=== PATIENT | female | born 1960 | race Caucasian/White ===

== ENCOUNTER 2025-02-02 13:11 | Outpatient (AMB) | payer MEDICARE, SELFPAY ==
--- NOTE | 2025-02-02 13:15 | MHC.OFFVIS ---
Vital Signs 02/02/25 13:16 Height 5 ft 5 in Weight 213 lb BMI 35.4 BP 127/78 Blood Pressure Location Lt brachial Position Sitting Respiration 20 Pulse 77 Pulse Source Pulse Oximeter Pulse Oximetry (%) 97 Oxygen Delivery Method Room Air Intake Visit Reasons: Hand pain Clinical Nurse Specialist Required: No Allergies No Known Allergies Allergy (Verified 01/27/25 11:12) HPI Comments Details: Norma is very pleasant 65 years old female who presents in my office with complains on multiple pain generators. She reports that her pain started in her 30s in her right shoulder. She still complains on pain in the right shoulder. She had multiple hand surgeries and she complains on pain in bilateral hands. She also complains on weakness of the left hand and forearm. She reports that she is not able to function properly with the left hand. She never had an MRI of the cervical spine. She had multiple procedures of the lower back pain the last place where she had the [facility]. Recently she developed left foot arch collapse and she is offered surgery for this condition as well. She experiences severe pain in the bottom of her left sole. Because of her pain she can not sleep normally can not do activities of daily living can not take care of herself and can not function normally. She is retired and on permanent disability. Cold and weather changes aggravate her pain as well as movements. Heat applications topical medications and oral medications make her pain better. In terms of tissue damage he describes her pain as pulsing, throbbing, pounding, tugging, pulling, wrenching, tingling, stinging, dull, hurting, heavy, tiring, exhausting, tight, squeezing, tearing sensation. She had multiple images of multiple areas of the body but [facility] MRI of the cervical spine. She had physical therapy for bilateral hands. She sometime ago had physical therapy for the lumbar spine. She denies any help from physical therapy. She had acupuncture of bilateral hands pain and pain in the lower back and the acupuncture helped her pain for very short period of time. She also tried some herbal medications from . In [place] she does not remember the name of the doctor on nature of the medications. None of this helps her pain for a long period of time. Her past medical history significant for anemia fatigue digestive problems and arthritis. Total she has 17 surgeries including bilateral hip replacement bilateral knee replacements multiple surgeries on the hands multiple surgeries on the knees as well as lap band surgery removal and insertion. She denies smoking cigarettes denies drinking alcohol on regular basis she drinks it occasionally, she admits THC wipe as a recreational drug. Review of Systems Const All systems reviewed & are unremarkable except as noted in HPI and below ENT Reports Normal hearing present Neuro Reports Normal hearing present, Denies Abnormal speech present, Denies confusion and Denies Sensory deficit (Neuro) Psych Denies confusion Physical Exam Vital Signs: Last Vital Signs Pulse 77 02/02/25 13:16 Resp 20 02/02/25 13:16 BP 127/78 02/02/25 13:16 Pulse Ox 97 02/02/25 13:16 Oxygen Delivery Method Room Air 02/02/25 13:16 BMI result Body Mass Index 35.4 Const General: no acute distress; No confusion Nutritional Appearance: obese morbidly obese Orientation/consciousness: patient oriented x3 and No confusion Eyes General: appearance normal, both eyes and all related structures Pupils: Equal, round and reactive pupils present EOM: EOMs intact bilaterally Neck Neck: Yes full ROM Chest Chest palpation & inspection: normal inspection of the chest Resp Effort & Inspection: normal respiratory effort, able to speak in complete sentences, normal respiratory pattern, no audible wheezes and no cough Cardio Jugular venous distension: no JVD GI Inspection: Yes normal to inspection Neuro General: patient oriented x3, gait normal and No confusion Cranial nerves: Yes CN's II-XII intact bilaterally, Yes Equal, round and reactive pupils present, Yes Normal hearing present and Yes Ability to bilaterally elevate shoulders present Speech: No Abnormal speech present Gait exam (Neuro): Normal gait present Motor exam (neuro): 5/5 motor strength present throughout Sensory Exam: No Sensory deficit (Neuro) Extrem Other: Objective weakness of the left hand. She is currently wearing a cast on the right hand after the recent surgery. Wears special shoes with insoles to help the left arch collapsed food. General: No pedal edema Psych Speech and movement: Normal speech and movement present Affect: normal affect Attitude: cooperative Thought process: Normal thought process present Thought content: Normal thought content present Insight: Good insight present (Psych) Judgement: Good judgement present (Psych) Assessment & Plan Assessment & Plan (1) Radiculopathy, cervical: Code(s): M54.12 - Radiculopathy, cervical region Category: Medical (2) Foot arch pain: Code(s): M79.673 - Pain in unspecified foot Category: Medical (3) Arch pain of left foot: Code(s): M79.672 - Pain in left foot Category: Medical (4) 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 Maybe this medication will help her to sleep better and provide some pain relief. I also will send her for the MRI of the cervical spine. The objective weakness of the left upper extremity is troublesome. I will schedule her for left popliteal fossa sciatic nerve block in an attempt to alleviate her pain from the left collapsed foot arch. I will have her to sign medical information release note and I will obtain all the injections she received at [facility] as well as MRI of the lumbar spine. 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
[2025-02-02 13:16] VITALS: BP 127/78; PULSE 77; RESP 20; O2SAT 97; BMI 35.4
--- OUTSIDE RECORDS SUMMARY | 2025-02-02 14:26 | XMS_ITS | Encounter Summary ---
Author Organization [facility] Address [address] [place] [address] Care Team Providers Care Cinder Pit Crane Operator Name Role Phone Christopher Willis MD Primary Care Provider [phone] Reason for Visit * Reason Onset Date Comments Referral 10/06/2024 Encounter Details Date Type Department Care Team ([facility] Contact Info) Description 10/06/2024 Telephone Adult Medicine [facility] [address] [place] [phone] Christopher Willis MD [address] [place] [address] Social History Tobacco Use Types Packs/Day Years Used Date Smoking Tobacco: Former Cigarettes Q uit: 06/01/2002 Smokeless Tobacco: Never Alcohol Use Standard Drinks/Week Comments Yes 0 (1 standard drink = 0.6 oz pur e alcohol) rare Housing Instability Answer Date Recorde d Are you worried that in the next 2 months you may not have stable housing? No 07/01/2024 Food Access & Nutrition Answer Date Rec orded Do you have access to a vari ety of food including fruits and vegetables? Yes 07/01/2024 Access to Healthcare Answer Date Record ed Within the last 3 months, ho donato many times did you visit the emergency department for your medical care? 0 07/01/2024 Health Literacy Answer Date Recorded How often do you need to hav e someone help you when you read instructions, pamphlets, or other written material from your doctor or pharmacy? Never 07/01/2024 Caregiver: How often do you need to have someone help you when you read instructions, pamphlets, or other written material from your doctor or pharmacy? Not on file 07/01/2024 Financial Risk Answer Date Recorded How hard is it for you to pa y for the very basics like food, housing, medical care, and air conditioning / heating? Hard 07/01/2024 Transportation Answer Date Recorded Has the lack of transportati on kept you from meetings, work, or from getting things needed for daily living? No Has the lack of transportati on kept you from medical appointments or from getting medications? No 07/01/2024 Social Isolation Answer Date Recorded How often do you feel lonely or isolated from those around you? Sometimes 07/01/2024 Food Risk Answer Date Recorded Within the past 12 months we worried whether our food would run out before we got money to buy more. Never true 07/01/2024 Within the past 12 months th e food we bought just didn't last and we didn't have money to get more. Never true 07/01/2024 Dependent Care Answer Date Recorded Do you need help finding or paying for care for your loved ones. For example, children's literature professor or elderly care for an older adult? No 07/01/2024 Education Answer Date Recorded Do you think completing more education or training, like finishing a GED, going to college, or learning a trade, would be helpful for you? No 07/01/2024 Employment and Income Answer Date Recor ded During the last four weeks, have you been actively looking for work? No 07/01/2024 Living Situation Answer Date Recorded What is your living situation? 0 07/01/2024 Comments No Sex and Gender Information Value Date Recorded Sex Assigned at Female 06/30/2024 6:30 AM EST Legal Sex Female 4:53 PM EST Gender Identity Female 06/30/2024 6:30 AM EST Sexual Orientation Straight 12/27/2024 3: 33 PM EDT documented as of this encounter Progress Notes * Stefani Samuel MA - 10/11/2024 2:13 PM EDT Pt called and advised to make appt to discuss the referral * Christopher Willis MD - 10/10/2024 5:57 PM EDT Not usually a referral for her type of arthritis. It would be best if she were seen first to discuss role for rheumatology * Henrietta Domínguez - 10/06/2024 9:51 AM EDT Referral Request: What insurance does the patient have today? [employer] Referrals cannot be processed if the insurance is not accurate. If the insurance listed above in red is NO BILLING INFORMATION FOUND FOR THIS ENCOUTNER The patients correct insurance must be obtained and registered in [place] or their referral can not be processed. Who is calling to request this referral? Norma If the caller is not the patient, what is their name? not applicable Ask the patient WHO referred them to this specialty: Patient self referred FIRST and LAST NAME of SPECIALIST PATIENT is seeing: Dr Hilda Disla What specialty is this? Rheumatology DIAGNOSIS Patient is being seen for (Not a body part or a procedure): Osteoarthritis Have you seen this SPECIALIST for this PROBLEM/DX before? If YES, when? No Have you checked REVIEW or the APPT DESK to see if this referral has already been done or has visits left? yes Is this visit: Initial Visit Address of Specialist: [facility] [address] Phone # of Specialist: [phone] Fax #: (if applicable): NA Does patient have an appointment scheduled?: no Date of appointment- (including a retro-request): NA Is this appointment related to: Not MVA, worker compensation, or surgery related documented in this encounter Plan of Treatment Upcoming Encounters Date Type Department Care Team (Late st Contact Info) Description 02/13/2025 9:45 AM EDT Office Visit Orthopedic Surgery - [place] [address] [phone] Shorty Umanzor MD [address] [place] [address] 03/22/2025 11:00 AM EDT Office Visit Adult Medicine - [place] [address] [place] [address] Chepe Byrd PA [address] [place] [address] documented as of this encounter Visit Diagnoses Not on filedocumented in this encounter Additional Health Concerns Assessment Noted Time PHQ-9 Depression Total Score: 11 025 6:58 AM EST documented as of this encounter Care Teams Cinder Pit Crane Operator Relationship Specialty Start Date End Date Christopher Willis MD [address] [place] [id number] PCP - General Internal Medicine 04/17/20 documented as of this encounter
--- OUTSIDE RECORDS SUMMARY | 2025-02-02 14:26 | XMS_ITS | Clinical Summary ---
Author Organization [facility] Address [address] [place] [phone] Phone Care Team Providers Care Health Plan Specialist Name Role Phone Kurt Willis MD Primary Care Provider + Encounters Date Type Department Care Team Description 01/06/2025 Telephone [facility] Rheumatology [address] [place] [address] Unknown, Unknown, Referral from Last 3 Months Social History Tobacco Use Types Packs/Day Years Used Date Smoking Tobacco: Never Assessed Comments Unknown Sex and Gender Information Value Date Recorded Sex Assigned at Not on file Legal Sex Female 9:43 AM EDT Gender Identity Not on file Sexual Orientation Not on file Plan of Treatment Not on file Medical Devices Not on file Insurance [facility] MEDICARE REPLACEMENT [place] [id number] [facility] MEDICARE REPLACEMENT Care Teams Health Plan Specialist Relationship Specialty Start Date End Date Kurt Willis MD [address] [place] [phone] PCP - General Internal Medicine 10/06/24 Additional Source Comments The information contained in this document represents components of the legal health record. It is not the complete legal health record.[facility]
--- OUTSIDE RECORDS SUMMARY | 2025-02-02 14:26 | XMS_ITS ---
Author Name [facility] Organization Unknown Encounters Encounter Type Encounter Reason Primary Diagnosis Location Date Ambulatory [facility] 03/11/2024 Care Team Organization Name Specialty Phone Email Start Date End Da [facility] 2024
--- OUTSIDE RECORDS SUMMARY | 2025-02-02 14:26 | XMS_ITS | Clinical Summary ---
Author Organization [facility] Address [address] [place] [address] Care Team Providers Care Dispatcher Tow Truck Name Role Phone Kurt Willis MD Primary Care Provider Unava ilable Social History Tobacco Use Types Packs/Day Years Used Date Smoking Tobacco: Never Assessed Comments Unknown Sex and Gender Information Value Date Recorded Sex Assigned at Not on file Legal Sex Female 10:34 AM EDT Gender Identity Not on file Sexual Orientation Not on file Plan of Treatment Health Maintenance Due Date Last Done Comments Advance Care Planning 1960 Hepatitis C Virus Screening 1960 DTaP/Tdap/Td Vaccines (1 - Tdap) 1977 Pneumococcal Vaccines 50+ (1 of 1 - PCV) 01/22/2008 Zoster (Shingles) Vaccine (1 of 2) 01/22/2008 COVID-19 Vaccine ( - 2023-2 5 season) 2024 RSV Vaccine 60 years and old er and Patients (1 - 1-dose 75+ series) 2033 Hepatitis B Vaccines Aged Out No long er eligible based on patient's age to complete this topic Care Teams Dispatcher Tow Truck Relationship Specialty Start Date End Date Kurt Willis MD PCP - General
--- OUTSIDE RECORDS SUMMARY | 2025-02-02 14:26 | XMS_ITS | Encounter Summary ---
Author Organization [facility] Address [address] [place] [address] Care Team Providers Care Solutions Development Analyst Name Role Phone Christopher Willis MD Primary Care Provider [phone] Encounter Details Date Type Department Care Team (Late Contact Info) Description 04/08/2024 Nurse Triage Adult Medicine [facility] [address] [place] [phone] Thania Ely PA [address] [place] [address] Social History Tobacco Use Types Packs/Day Years Used Date Smoking Tobacco: Former Cigarettes Q uit: 06/01/2002 Smokeless Tobacco: Never Alcohol Use Standard Drinks/Week Comments Yes 0 (1 standard drink = 0.6 oz pur e alcohol) social Comments No Sex and Gender Information Value Date Recorded Sex Assigned at Female 06/30/2024 6:30 AM EST Legal Sex Female 4:53 PM EST Gender Identity Female 06/30/2024 6:30 AM EST Sexual Orientation Straight 12/27/2024 3: 33 PM EDT documented as of this encounter Plan of Treatment Upcoming Encounters Date Type Department Care Team (Late Contact Info) Description 02/13/2025 9:45 AM EDT Office Visit Orthopedic Surgery [facility] [address] [facility] [address] [place] [phone] Shorty Umanzor MD [address] [place] [address] 03/22/2025 11:00 AM EDT Office Visit Adult Medicine - [place] [address] [place] [address] Chepe Byrd PA [address] [place] [address] documented as of this encounter Visit Diagnoses Not on filedocumented in this encounter Care Teams Solutions Development Analyst Relationship Specialty Start Date End Date Christopher Willis MD [address] [place] [phone] PCP - General Internal Medicine 04/17/20 documented as of this encounter
--- OUTSIDE RECORDS SUMMARY | 2025-02-02 14:26 | XMS_ITS | Clinical Summary ---
Author Organization [facility] Address [address] [place] [address] Care Team Providers Care Horser Up Name Role Phone Unavailable Primary Care Provider Unavailabl e Allergies No known active allergies Medications Medication Sig Dispensed Refills Start Date End Date Status DULoxetine (CYMBALTA) DR capsule 60 mg Take 1 capsule (60 mg total) by mouth daily. 0 Active Multiple Vitamin (MULTIVITAMIN ADULT PO) Take 1 tablet by mouth daily. 0 Active Cholecalciferol (VITAMIN D-3 PO) Take 25 mcg by mouth 2 (two) times a day after meals. 0 Active Turmeric (QC TUMERIC COMPLEX PO) Take 2,400 mg by mouth 2 (two) times a day. 0 Active dicyclomine (BENTYL) 20 MG tablet Take 1 tablet (20 mg total) by mouth 2 (two) times a day. 0 Active pantoprazole (PROTONIX) 40 MG tablet Take 1 tablet (40 mg total) by mouth every morning on an empty stomach. 0 Active tolterodine (DETROL LA) 4 MG 24 hr capsule Take 1 capsule (4 mg total) by mouth daily. 0 Active aspirin EC 81 MG tablet Take 1 tablet (81 mg total) by mouth daily. 0 Active atorvastatin (LIPITOR) tablet 80 mg Take 1 tablet (80 mg total) by mouth daily. 0 Active metoprolol succinate (TOPROL-XL) 24 hr tablet 25 mg Take 0.5 tablets (12.5 mg total) by mouth daily. 0 Active Social History Tobacco Use Types Packs/Day Years Used Date Smoking Tobacco: Former Cigarettes Q uit: 2002 Smokeless Tobacco: Never Alcohol Use Standard Drinks/Week Comments Not Currently 0 (1 standard drink = 0.6 oz pur e alcohol) Sex and Gender Information Value Date Recorded Sex Assigned at Not on file Gender Identity Not on file Sexual Orientation Not on file Job Start Date Occupation Industry Not on file Not on file Not on file Last Filed Vital Signs Vital Sign Reading Time Taken Comments Blood Pressure 150/93 11/10/2022 12:57 PM EDT Pulse 70 11/10/2022 12:57 PM EDT Temperature 36.7 C (98.1 F) 11/10/2022 12:57 PM EDT Respiratory Rate - - Oxygen Saturation 98% 11/10/2022 12:57 PM EDT Inhaled Oxygen Concentration - - Weight 95.3 kg (210 lb) 11/10/2022 12:57 PM EDT Height 162.6 cm (5' 4 ) 11/10/2022 12:57 PM EDT Body Mass Index 36.05 11/10/2022 12:57 PM EDT Plan of Treatment Health Maintenance Due Date Last Done Comments Hepatitis C Screening 1960 COVID-19 Vaccine (#1) 1958 Depression Screening 1970 Preventative Health Evaluation 01/22/1976 Colon Cancer Screening (Colonoscopy) 2003 Breast Cancer Screening (Mammogram) 01/22/2008 Fall Risk Assessment 2023 Osteoporosis Screening (DEXA Scan) 2023 Pneumococcal Vaccine (1 of 1 - PCV) 2023 Influenza Vaccine (#1) 2025 , 02/20/2020, 05/06/2019, Additional history exists DTap / Tdap / Td (3 - Td or Tdap) 09/19/2027 09/18/2017, 11/08/2007 RSV Adult > 60+ Yrs or (1 - 1-dose 75+ series) 2033 Shingrix-Zoster Vaccine Completed 12/31/2017, 09/18 Hepatitis B Vaccines Aged Out No long er eligible based on patient's age to complete this topic RSV Ped < 20 months Aged Out No longe r eligible based on patient's age to complete this topic
--- OUTSIDE RECORDS SUMMARY | 2025-02-02 14:26 | XMS_ITS | Encounter Summary ---
Author Organization [facility] Address [address] [place] [address] Care Team Providers Care Preschool Paraprofessional Name Role Phone Christopher Willis MD Primary Care Provider [phone] Encounter Details Date Type Department Care Team (Late Contact Info) Description 05/18/2024 Lab Requisition [facility] - Main Lab [address] [facility] [place] [address] Jose Vila PA [address] [place] [address] [place] [phone] Gross hematuria Social History Tobacco Use Types Packs/Day Years [...] AM EDT Office Visit Orthopedic Surgery - [place] 250 [address] [facility] [address] [place] [address] Shorty Umanzor MD [address] [place] [address] 03/22/2025 11:00 AM EDT Office Visit Adult Medicine - [place] [address] [place] [phone] Chepe Byrd PA [address] [place] [address] documented as of this encounter Procedures Procedure Name Priority Date/Time Associated Diagnosis Comments AP OUTSIDE CONSULT Routine 05/11/2024 12 :00 AM EST Gross hematuria documented in this encounter Results * Anatomic pathology outside consult (05/11/2024 12:00 AM EST) Addendum Results of UroVysion fluorescence in situ hybridization (FISH) testing: CEP3: Normal CEP7: Normal CEP17: Normal LSI 9p21: Normal Interpretation: Normal profile Controls stained appropriately. Note: The results are intended as a screening device and should be interpreted in association with other clinical and pathological findings. 05/31/2024 1:48 PM [facility] Addendum electronically signed by Allison Menchaca MD on 05/31/2024 at 1:48 PM Final Diagnosis Urine, Voided ([id number]): Negative for high grade urothelial carcinoma. Note: UroVysion testing to follow. 05/31/2024 1:48 PM [facility] Gross Description A. Urine, Voided, : [id number] Received 1 TP (CYTO) 1 TP (FISH) 05/31/2024 1:48 PM [facility] Disclaimer Unless otherwise specified, all tissue is 10% NB formalin fixed and paraffin embedded. Technical pathology services provided by [facility] at [address], [place] [address] (CLIA #[id number]/Susannah Rodriguez MD, Nurse Intern) 05/31/2024 1:48 PM EST [facility] Tissue Urine specimen from urethra / Unknown 05/11/2024 05/18/2024 2:34 PM EST us [facility] PATHOLOGY ORDERAB LES Edited Result - Final [facility] [address] [place] [address], documented in this encounter Visit Diagnoses Diagnosis Gross hematuria documented in this encounter Care Teams Preschool Paraprofessional Relationship Specialty Start Date End Date Christopher Willis MD [address] [place] [phone] PCP - General Internal Medicine 04/17/20 documented as of this encounter
--- OUTSIDE RECORDS SUMMARY | 2025-02-02 14:26 | XMS_ITS | Clinical Summary ---
Author Organization [facility] [address] [facility] [address] Address [address] [place] [address] Phone Care Team Providers Care Hand Edge Bander Name Role Phone Christopher Willis MD Primary Care Provider [phone] Allergies No known active allergies Medications linaCLOtide (Linzess) 72 mcg capsule Take 1 capsule (72 mcg total) by mouth 1 (one) time each day if needed. 024 Active ondansetron ODT (ZOFRAN-ODT) 4 mg disintegrating tablet Dissolve 1 tablet (4 mg total) on top of the tongue every 8 (eight) hours if needed. 024 Active pantoprazole (PROTONIX) 40 mg EC tablet 1 tablet (40 mg total) at bedtime. 024 Active vibegron (Gemtesa) 75 mg tablet tablet 1 tablet (75 mg total) at bedtime. Active ammonium lactate (AMLACTIN) 12 % cream Apply 12 Applications topically if needed for dry skin. 024 Active metoprolol tartrate (LOPRESSOR) 25 mg tablet TAKE 1/2 TABLET BY MOUTH TWICE DAILY 90 tablet 1 Active DULoxetine (CYMBALTA) [address] capsule TAKE 1 CAPSULE BY MOUTH DAILY 90 capsule 1 025 Active Additional Information Patient taking differently: 60 mg Nightly, Reported on 01/13/2025 aspirin 81 mg capsule Take 81 mg by mouth 1 (one) time each day. Pt calling dr office to find out when to stop asa 81 Active multivit with minerals/lutein (MULTIVITAMIN 50 PLUS ORAL) Active nystatin (MYCOSTATIN) cream if needed. Active diclofenac (Voltaren Arthritis Pain) 1 % topical gel Active albuterol HFA (PROAIR HFA ; PROVENTIL HFA ; VENTOLIN HFA) 90 mcg/actuation inhalerIndication s:Wheezing Inhale 2 Puffs into the lungs every 4 hours as needed for Cough, Wheezing or Shortness of Breath. 6.7 g Active montelukast (SINGULAIR) 10 mg tabletIndications :Nasal polyp,Allergic conjunctivitis of both eyes and rhinitis Take 1 tablet (10 mg total) by mouth at bedtime. 90 each Active gabapentin (NEURONTIN) 300 mg capsule TAKE 1 CAPSULE BY MOUTH DAILY 90 capsule Active Additional Information Patient taking differently: 300 mg oral Nightly, Reported on 01/13/2025 atorvastatin (LIPITOR) 80 mg tablet TAKE 1 TABLET BY MOUTH DAILY 90 tablet 1 Active Additional Information Patient taking differently: 80 mg oral Nightly, Reported on 01/13/2025 ipratropium (ATROVENT) 42 mcg (0.06 %) nasal spray Active oxyCODONE (OXY-IR) 5 mg immediate release capsule Take 1 capsule (5 mg total) by mouth every 6 (six) hours if needed for severe pain. Max Daily Amount: 20 mg 24 capsule Active celecoxib (CeleBREX) 100 mg capsule TAKE 1 CAPSULE BY MOUTH DAILY 90 capsule Active tirzepatide, weight loss, (Zepbound) 7.5 mg/0.5 mL injectionIndicati ons:Class 2 obesity,BINTA (obstructive sleep apnea) Inject 0.5 mL (7.5 mg total) under the skin every 7 (seven) days. 2 mL Active celecoxib (CeleBREX) 100 mg capsule TAKE 1 CAPSULE BY MOUTH DAILY 90 capsule 025 2024 Discontinued Zepbound 5 mg/0.5 mL injectionIndicati ons:Class 2 obesity,BINTA (obstructive sleep apnea) INJECT 5MG UNDER THE SKIN EVERY 7 DAYS. 2 mL 025 2024 Discontinued diphenhydrAMINE 12.5 mg/5 mL elixir 50 mg, aluminum-magnesiu m hydroxide-simethi cone 400-400-40 mg/5 mL suspension 20 mL, lidocaine 2 % solution 20 mLIndications:Pha ryngitis, unspecified etiology Swish and spit 10 mL every 6 (six) hours if needed (pain) for up to 5 days. 1 each 025 2024 Additional Information Patient not taking.Reported on 01/06/2025 Zepbound 5 mg/0.5 mL injectionIndicati ons:Class 2 obesity,BINTA (obstructive sleep apnea) ADMINISTER 5 MG UNDER THE SKIN EVERY 7 DAYS 2 mL 025 2024 Discontinued(D ose adjustment) acetaminophen (TYLENOL) 500 mg tablet Take 2 tablets (1,000 mg total) by mouth every 6 (six) hours if needed for mild pain for up to 10 days. 30 tablet 025 2024 ibuprofen (ADVIL,MOTRIN) 600 mg tablet Take 1 tablet (600 mg total) by mouth every 6 (six) hours if needed for mild pain for up to 10 days. 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 [place] to be related to meds Fluoxetine, nortriptyline, tizanidine. 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 Abnormal stress echo. Cath with no significant obst disease. Medical management. Abnormal stress echo 09/27/2019 Overview (04/06/2024): 09/18 Suggestive of multiple vessel disease Referred to cardiology. Cath. No significant disease. Medical management Abnormal EKG 05/06/2019 Overview (04/06/2024): 05/19 - nortriptyline increased, also on prozac. EKG showed borderline QT interval, recommend repeat in 3 months Irritable bowel syndrome wit h both constipation and diarrhea 05/06/2019 Trochanteric bursitis, right hip 02/01/2019 Nonulcer dyspepsia 01/19/2019 Synovial cyst of popliteal space 12/13/2018 Adrenal cyst (CMS/HCC V24) 07/30/2018 Overview (04/06/2024): 1cm, incidental CT abdomen and pelvis in ER 07/27/18, recommend one-year follow- up Anxiety 01/05/2017 Anemia 03/04/2011 Overview (04/06/2024): Mild 02/09--iron , b12 normal Vitamin D deficiency 01/04/2010 Obesity (BMI 30-39.9) 11/06/2007 Lumbago 07/30/2004 Overview (04/06/2024): Disc--PT, injection, no surgery Encounters Date Type Department Care Team Description 01/25/2025 10:00 AM EDT Office Visit Orthopedic Surgery [facility] [address] [place] [phone] Shorty Umanzor MD Arthritis of carpometacarpal (CMC) joint of right thumb (Primary Dx); Degenerative arthritis of metacarpophalangeal joint of right thumb; Postoperative state 01/13/2025 7:32 AM EDT Anesthesia Event [facility] [place] [address] [place] [phone] Ovidio Carmen MD 01/13/2025 7:30 AM EDT - 01/13/2025 9:45 AM EDT Surgery [facility] OR [address] [place] [phone] Shorty Umanzor MD Right thumb CMC arthroplasty, right thumb MP fusion [[id number] (CPT ) +1 more] 01/13/2025 5:34 AM EDT - 01/13/2025 11:33 AM EDT Hospital Encounter [facility] OR [address] [place] [phone] Shorty Umanzor MD Arthritis of carpometacarpal (CMC) joint of right thumb; Degenerative arthritis of metacarpophalangeal joint of right thumb Discharge Disposition: Home or Self Care 01/09/2025 Telephone Orthopedic Surgery [facility] [address] [phone] Kate Mae [place] 01/02/2025 Telephone Adult [address] [phone] Christopher Willis MD 12/28/2024 9:30 AM EDT Office Visit Adult [address] [phone] Chepe Byrd PA Class 2 obesity (Primary Dx); Obstructive sleep apnea; Coronary artery disease involving anvik heart without angina pectoris, unspecified vessel or lesion type; Pharyngitis, unspecified etiology; Former smoker; Wheezing 12/12/2024 10:45 AM EDT Office Visit Adult [address] [phone] Grecia Kaufman PA Medicare annual wellness visit, initial (Primary Dx); Depression, unspecified depression type; Other chronic pain; Pain in both hands; Chronic midline low back pain without sciatica 11/15/2024 10:18 AM EDT - 11/15/2024 11:59 PM EDT Hospital Encounter Radiology Department - [address] [phone] Encounter for screening mammogram for breast cancer Discharge Disposition: Home or Self Care 11/14/2024 10:00 AM EDT Office Visit Orthopedic Surgery [facility] [address] [phone] Shorty Umanzor MD Arthritis of carpometacarpal (CMC) joint of right thumb (Primary Dx); Degenerative arthritis of metacarpophalangeal joint of right thumb 11/09/2024 9:45 AM EDT Office Visit Adult Medicine [address] [phone] Chepe Byrd PA Class 2 obesity (Primary Dx); BINTA (obstructive sleep apnea); Nasal polyp; Allergic conjunctivitis of both eyes and rhinitis; Fibromyalgia; Other chronic pain; Wheezing; Former smoker from Last 3 Months Immunizations Name Administration Dates Next Due H1N1 Inj Preservative Free 05/16/2009 Influenza Quadravalent, 0.5m l (Fluzone High-dose) 65yo and older 03/04/2023 Influenza Quadravalent, MDCK , 0.5ml, preservative free (Flucelvax) 6mo and older 02/20/2020,05/06/2019,02/02/2018 Influenza Quadrivalent, 0.5m l, preservative free (Fluarix; FluLaval; Fluzone) ages 6mo and older (Afluria) 3yo and older 03/28/2022,05/16/2021,03/14/2017,2012 Influenza Quadrivalent, with preservative (Fluzone; Afluria) 6mo and older 03/01/2020,04/13/2019,03/02/2018 Influenza trivalent, 0.5mL ( Fluad) 65yo and older 02/08/2024 Influenza trivalent, 0.5mL ( Fluzone High-dose) 65yo and older 02/08/2024 Influenza trivalent, 0.5mL, preservative free (Fluarix; FluLaval; Fluzone) ages 6mo and older (Afluria) 3 years and older 03/14/2017,05/21/2016,02/15/2015,2013,04/05/2013,03/23/2012,02/25/2011,1 07/04/2009,05/16/2009,05/18/2008, 007,03/19/2006,04/07/2005 Influenza trivalent, with preservative (Fluzone; Afluria) 6mo and older 05/21/2016,03/15/2015,02/15/2015,2012,03/23/2012,02/25/2011,05/03/2010,1 07/17/2008,05/18/2008,05/04/2007, 006,04/07/2005 Influenza, Unspecified 05/01/2012 Moderna SARS-CoV-2 COVID-19, mRNA, LNP-S, preservative free 04/01/2021 PPD Test 04/07/2005,02/27/2003 Pneumococcal conjugate 20 va lent (Prevnar 20, PCV 20) 2mo and older 03/14/2023 RSV, bivalent, protein subun it RSVpreF, 0.5mL, Preservative Free (Arexvy) 60yo and older 06/08/2024 Tdap Tetanus diptheria acell ular pertussis (Boostrix; Adacel) 7yo and older 09/18/2017,11/08/2007 Varicella live (Varivax) 12m o and older 03/02/2018 Zoster recombinant (Shingrix ) 19yo and older 01/18/2018,12/31/2017,09/18/2017 Surgical History Surgery Date Site/Laterality Comments VAGINAL DELIVERY PROCEDURE: HISTORICAL VAGINAL DELIVERY; COMMENT: 3 COLONOSCOPY 03/02/08 PROCEDURE: VT COLONOSCOPY STOMA DX INCLUDING COLLJ SPEC SPX; COMMENT: Up to cecum, good preparation, normal colon exam OTHER SURGICAL HISTORY PROCEDURE: VT LIG/TRNSXJ FLP TUBE ABDL/VAG APPR UNI/BI TUBAL LIGATION PROCEDURE: HISTORICAL TUBAL LIGATION HIP ARTHROPLASTY Bilateral PROCEDURE: HISTORICAL HIP REPLACEMENT; COMMENT: Left 2010, Right 2012 TOTAL KNEE ARTHROPLASTY 04/12 PROCEDURE: HISTORICAL TOTAL KNEE REPLACE; COMMENT: left LAPAROSCOPIC GASTRIC BANDING 04/13 PROCEDURE: LAP ADJUSTABLE GASTRIC BAND UPPER GASTROINTESTINAL ENDOSCOPY 12/08/2018 PROCEDURE: UPPER GI ENDOSCOPY/EXAM; COMMENT: negative HAND SURGERY 12/30/2018 Left PROCEDURE: HISTORICAL HAND SURGERY; COMMENT: Dorsal capsule instability, trapeziometacarpal joint reconstruction ROTATOR CUFF REPAIR 06/01/2022 - 05/31/2023 Right HERNIA REPAIR TOE SURGERY x3 Medical History Medical History Date Comments Need for prophylactic vaccin ation and inoculation against influenza 04/07/05 DX:Need for prophylactic vaccination and inoculation against influenza Pain in joint, pelvic region and thigh 9/16/05 DX:Pain in joint, pelvic reg ion and thigh Lumbago 12/09/04 DX:Lumbago Dysuria 11/19/04 DX:Dysuria Acute sinusitis, unspecified 08/28/04 DX: Acute sinusitis, unspecified Allergic rhinitis, cause unspecified 08/02/04 DX:Allergic rhinitis, cause unspecified Depressive disorder, not els ewhere classified 08/02/04 DX:Depressive disorder, not elsewhere classified Degeneration of lumbar or eulogio mbosacral intervertebral disc 07/30/04 DX:Degeneration of lumbar or lumbosacral intervertebral disc Displacement of lumbar inter vertebral disc without myelopathy 07/30/04 DX:Displacement of lumbar intervertebral disc without myelopathy Need for prophylactic vaccin ation and inoculation against influenza 06/06/04 DX:Need for prophylactic vaccination and inoculation against influenza Sciatica 05/23/04 DX:Sciatica Urinary tract infection, sit e not specified 05/09/04 DX:Urinary tract infection, site not specified Papanicolaou smear of cervix with atypical squamous cells cannot exclude high grade squamous intraepithelial lesion (ASC-H) 02/22/04 DX:Papanicolaou smear o f cervix with atypical squamous cells cannot exclude high grade squamous intraepithelial lesion (ASC-H) Leukorrhea, not specified as infective 02/22/04 DX:Leukorrhea, not specified as infective Acute bronchitis 03/23/03 DX:Acute bronch itis Acute pharyngitis 11/01/02 DX:Acute phary ngitis Acute conjunctivitis, unspecified 07/29/02 DX:Acute conjunctivitis, unspecified Acute upper respiratory infe ctions of unspecified site 07/29/02 DX:Acute upper respiratory i nfections of unspecified site Closed dislocation of patella 06/07/02 DX :Closed dislocation of patella Other malaise and fatigue 03/16/02 DX:Oth er malaise and fatigue Unspecified disorder of thyroid 01/06/02 DX:Unspecified disorder of thyroid Goiter, unspecified 12/30/01 DX:Goiter, u nspecified Tobacco use disorder 12/30/01 DX:Tobacco use disorder Hidradenitis 12/14/01 DX:Hidradenitis Historical Medical DX 12/14/01 DX:FEMALE GEN INFLAM NEC Rash and other nonspecific s kin eruption 12/14/01 DX:Rash and other nonspecifi c skin eruption Cervicalgia 12/24/00 DX:Cervicalgia Dermatophytosis of scalp and wetzel 03/03/00 DX:Dermatophytosis of scalp and wetzel 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 Disturbance of skin sensation 09/27/98 DX :Disturbance of skin sensation Sprain and strain of other s pecified sites of shoulder and upper arm 09/27/98 DX:Sprain and strain o f other specified sites of shoulder and upper arm Unspecified arthropathy, yaa ulder region 09/03/98 DX:Unspecified arthropathy, shoulder region Exostosis of unspecified site 08/30/98 DX :Exostosis of unspecified site Sebaceous cyst 08/22/98 DX:Sebaceous cys t Other and unspecified noninf ectious gastroenteritis and colitis(558.9) 10/17/02 DX:Other and unspec ified noninfectious gastroenteritis and colitis(558.9) Anemia 03/04/2011 DX:Anemia Historical Medical DX 04/05/2011 DX: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 knee DJD 04/05/2011 DX:Right knee DJ D Osteoarthrosis, hip 06/14/2010 DX:Osteoarth rosis, hip Nonulcer dyspepsia 01/19/2019 DX:Nonulcer d yspepsia History of knee replacement, total, bilateral 02/25/2011 DX:History of knee replaceme nt, total, bilateral; COMMENT: Left TKR 04/12 History of total hip replace ment, bilateral 06/14/2010 DX:History of total hip repl acement, bilateral; COMMENT: Left THR 05/11 Anxiety 01/05/2017 Hypertension GERD (gastroesophageal reflu x disease) Chronic pain disorder Neuromuscular disorder ([facility] V24, [facility] V28) Family History Medical History Relation Name Comments Heart attack Father 59 Other cancer Father Basal Cell CA Asthma Mother Other: Emphysema Mother Hypertension Other Breast cancer Neg Hx Cancer of Small Bowel Neg Hx Colon cancer Neg Hx Kidney cancer Neg Hx Ovarian cancer Neg Hx Pancreatic cancer Neg Hx Uterine cancer Neg Hx Relation Name Status Comments Father Mother Other Social History Tobacco Use Types Packs/Day Years Used Date Smoking Tobacco: Former Cigarettes Q uit: 06/01/2002 Smokeless Tobacco: Never Tobacco Cessation:Counseling Given: Not Answered Alcohol Use Standard Drinks/Week Comments Yes 0 (1 standard drink = 0.6 oz pur e alcohol) rare Housing Instability Answer Date Recorde d Are you worried that in the next 2 months you may not have stable housing? No 12/12/2024 Food Access & Nutrition Answer Date Rec orded Do you have access to a vari ety of food including fruits and vegetables? Yes 12/12/2024 Access to Healthcare Answer Date Record ed Within the last 3 months, ho w many times did you visit the emergency department for your medical care? 0 12/12/2024 Health Literacy Answer Date Recorded How often [...] medical care, and air conditioning / heating? Somewhat hard 12/12/2024 Transportation Answer Date Recorded Has the lack of transportati on kept you from meetings, work, or from getting things needed for daily living? No Has the lack of transportati on kept you from medical appointments or from getting medications? No 12/12/2024 Social Isolation Answer Date Recorded How often do you feel lonely or isolated from those around you? Sometimes 12/12/2024 Food Risk Answer Date Recorded Within the past 12 months we worried whether our food would run out before we got money to buy more. Never true 12/12/2024 Within the past 12 months th e food we bought just didn't last and we didn't have money to get more. Never true 12/12/2024 Dependent Care Answer Date Recorded Do you need help finding or paying for care for your loved ones. For example, child nutrition director or elderly care for an older adult? [...] Recorded What is your living situation? 0 12/12/2024 Interpersonal Safety Answer Date Record ed Physical Abuse 01/13/2025 Verbal Abuse 01/13/2025 Comments No Sex and Gender Information Value Date Recorded Sex Assigned at Female 06/30/2024 6:30 AM EST Legal Sex Female 4:53 PM EST Gender Identity Female 06/30/2024 6:30 AM EST Sexual Orientation Straight 12/27/2024 3: 33 PM EDT Obstetrics History Para Term AB IAB SAB Ectopic Multiple Livin g Live Births 3 3 3 3 Date Outcome GA Total Labor Labor/2nd/3rd Weight Sex Type Anes PTL Margarita A1 A5 Name Clin Term Term Term Last Filed Vital Signs Vital Sign Reading Time Taken Comments Blood Pressure 113/70 01/13/2025 10:07 AM EDT Pulse 65 01/13/2025 10:07 AM EDT Temperature 36.4 C (97.6 F) 01/13/2025 9:42 AM EDT Respiratory Rate 18 01/13/2025 9:42 AM EDT Oxygen Saturation 95% 01/13/2025 10:07 AM EDT Inhaled Oxygen Concentration - - Weight 99.3 kg (219 lb) 01/25/2025 10:25 AM EDT Height 165.1 cm (5' 5 ) 01/25/2025 10:25 AM EDT Body Mass Index 36.44 01/25/2025 10:25 AM EDT Plan of Treatment Upcoming Encounters Date Type Department Care Team (Late st Contact Info) Description 02/13/2025 9:45 AM EDT Office Visit Orthopedic Surgery - [place] [address] [phone] Shorty Umanzor MD [address] [place] [address] 03/22/2025 11:00 AM EDT Office Visit Adult Medicine [facility] [address] [place] [phone] Chepe Byrd PA [address] [place] [address] Health Maintenance Due Date Last Done Comments Colorectal Cancer Screening: Stool Based Tests (FOBT/FIT) 05/10/2022 COVID-19 Vaccine ( season) 2024 03/14/2023, 10/11/2021, 04/01/2021, Additional history exists Influenza Vaccine (#1) 2025 , 02/08/2024, 03/04/2023, Additional history exists Hypertension/CHF/CAD Annual BMP Blood Test 08/16/2025 08/16/2024, 09/08/2023 Medicare Annual Wellness Visit 12/12/2025 12/12/2024 Social Influencers of Health Screening 12/12/2025 12/12/2024 Falls Risk Assessment 01/13/2026 01/13/2025 Breast Cancer Screening 11/15/2026 11/16/19, 11/10/2023, 11/10/2023, Additional history exists DTaP,Tdap,and Td Vaccines (3 - Td or Tdap) 09/19/2027 09/18/2017, 11/08/2007 Cholesterol Screening (Lipid Panel) 10/04/2027 10/03/2022 Osteoporosis Screening (Bone Density Screening) 06/28/2031 06/28/2021, 03/30/2019 Hepatitis C Screening Completed 02/15/2015 Varicella Vaccines Aged Out 03/02/2018 No longer eligible based on patient's age to complete this topic Zoster Vaccines Completed 03/02/2018, 12/31, 12/31/2017, Additional history exists Colorectal Cancer Screening: Colonoscopy Discontinued 09/15/2018 Pneumococcal Vaccine: 50+ Years Completed 03/14/2023 RSV Immunization Adult Patients Completed 06/08/2024 Depression Screening Completed 12/12/2024, 02/08/20 24 HIB Vaccines Aged Out No longer eligi ble based on patient's age to complete this topic HPV Vaccines Aged Out No longer eligi ble based on patient's age to complete this topic Hepatitis A Vaccines Aged Out No long er eligible based on patient's age to complete this topic Hepatitis B Vaccines Aged Out No long er eligible based on patient's age to complete this topic IPV Vaccines Aged Out No longer eligi ble based on patient's age to complete this topic MMR Vaccines Aged Out No longer eligi ble based on patient's age to complete this topic Meningococcal ACWY Vaccine Aged Out N o longer eligible based on patient's age to complete this topic Meningococcal B Vaccine Aged Out No l onger eligible based on patient's age to complete this topic RSV Immunization Patients Under 20 months Aged Out No longer eligible based on patient's age to complete this topic Medical Devices Implanted Type Area Rag Cutting Machine Tender Device Identifier Shelf Expiration Date Model / Serial / Lot Screw Std Acutrak 2 26.0mm - [id number] - [id number] Implanted:Qty: 1 on 01/13/2025 by Shorty Umanzor MD at [facility] Internal and External Fixation Right: Thumb ACUMED AT2-[id number] / [id number] / NA Procedures Procedure Name Priority Date/Time Associated Diagnosis Comments XR FINGERS 2+ VIEWS RIGHT Routine 01/25/2025 10:45 AM EDT Pain CAST APPLICATION Routine 01/25/2025 10:00 AM EDT Arthritis of carpometacarpal (CMC) joint of right thumb Postoperative state TISSUE EXAM Routine 01/13/2025 9:04 AM EDT Arthritis of carpometacarpal (CMC) joint of right thumb Degenerative arthritis of metacarpophalangeal joint of right thumb VT ARTHRODESIS METACARPOPHALANGEAL JOINT WITH OR WITHOUT INTERNAL FIXATION 01/13/2025 7:32 AM EDT Arthritis of carpometacarpal (CMC) joint of right thumb Degenerative arthritis of metacarpophalangeal joint of right thumb Case Notes MINI C-ARM,(Acutrak rep Aj debaise [phone]) stretcher, Arthrex suture tape, mcglamry, VT ARTHROPLASTY INTERCARPAL/CARPOMETACA RPAL JOINTS INTERPOSTION 01/13/2025 7:32 AM EDT Arthritis of carpometacarpal (CMC) joint of right thumb Degenerative arthritis of metacarpophalangeal joint of right thumb Case Notes MINI C-ARM,(Acutrak rep Aj debaise [phone]) stretcher, Arthrex suture tape, mcglamry, TH AN NERVE BLOCK SUPRACLAVICULAR (NO CHARGE) Routine 01/13/2025 7:06 AM EDT TH AN NERVE BLOCK SUPRACLAVICULAR (CHARGE) Routine 01/13/2025 7:06 AM EDT MG MAMMO DIGITAL SCREENING W BRONSON BILAT Routine 11/15/2024 10:32 AM EDT Encounter for screening mammogram for breast cancer COMPREHENSIVE METABOLIC PANEL Routine 08/16/2024 3:56 PM EDT Epigastric pain HM DEPRESSION SCREENING Routine 02/08/2024 LIPID PANEL Routine 10/03/2022 DXA BONE DENSITY STUDY 1+ SITS AXIAL SKEL Routine 06/28/2021 3:06 PM EST Other specified menopausal and perimenopausal disorders COLONOSCOPY Routine 09/15/2018 HEPATITIS C SCREENING Routine 02/15/2015 from Last 3 Months or Most Recently Relevant to Health Maintenance Results * XR Fingers 2+ Views Right (01/25/2025 10:45 AM EDT) Anatomical Region Laterality Modality Upper Extremities, Fingers Right Compu tammy Radiography Narrative 01/26/2025 5:36 PM EDT Three-view x-ray of the right thumb show interval trapeziectomy with suspension of the first metacarpal in appropriate position. There is retained transarticular hardware across the metacarpal phalangeal joint in appropriate position without martha-implant fracture. Soft tissue shadows show evidence of bone grafting at the level of the thumb MP joint and soft tissue swelling of the thumb. Impression: Hardware in appropriate position status post right thumb suture suspensioplasty and MP fusion us Shorty Umanzor MD IMG XR PROCEDURES Final Result * Casting (01/25/2025 10:00 AM EDT) Narrative Shorty Umanzor MD - 01/25/2025 10:00 AM EDT Shorty Umanzor MD 01/26/2025 5:36 PM Casting Performed by: Shorty Umanzor MD Authorized by: Shorty Umanzor MD Informed Consent: Laterality: Right Relevant images/test results available and reviewed: yes Health status cleared: Yes Procedure/treatment, purpose, treatment alternatives, risks/potential complications and benefits explained: yes Patient questions answered: yes Patient agrees, verbalizes understanding, and wants to proceed: yes Consent given by: Patient Informed consent discussion completed by Physician/MIRIAM with patient: Verbal Location: Wrist Site: Right wrist Neurovascularly intact Distal Perfusion: normal Distal Sensation: normal Manipulation Performed?: No Immobilization: Cast (thumb spica cast) Cast Type: Thumb spica Kanona Cast?: no Kanona Cast Supplies Used: Cotton padding (cotton padding stockinette, fiberglass) Neurovascularly intact Distal Perfusion: normal Distal Sensation: normal Patient tolerance: Patient tolerated the procedure well with no immediate complications us Shorty Umanzor MD IN CLINIC/BEDSIDE ORDERABLES Pro tammy Result - Final * Tissue exam (01/13/2025 9:04 AM EDT) Final Diagnosis Bone, Trapezoid right hand-arthroplasty : -BONE AND CARTILAGE WITH DEGENERATIVE CHANGES 01/17/2025 12:40 PM EDT [facility] Gross Description A. Bone, Trapezoid right hand: Labeled bone, trapezoid . Received in formalin is a 4.2 x 3.8 x 1.1 cm aggregate of markedly disrupted blanco-yellow bone with minimal attached blanco-white soft tissue. It Project Coordinator sections are submitted in one cassette following decalcification, multiple pieces. AUGUSTINE 01/17/2025 12:40 PM EDT [facility] Disclaimer Unless otherwise specified, all tissue is 10% NB formalin fixed and paraffin embedded. 01/17/2025 12:40 PM EDT [facility] Bone Bone structure / Unknown 01/13/2025 9:04 AM EDT 01/13/2025 11:06 AM EDT us Shorty Umanzor MD LAB PATHOLOGY ORDERABLES Final R esult [facility] [address] [place] [address], * TH AN NERVE BLOCK SUPRACLAVICULAR (CHARGE), TH AN NERVE BLOCK SUPRACLAVICULAR (NO CHARGE) (01/13/2025 7:06 AM EDT) Narrative Ovidio Carmen MD - 01/13/2025 7:06 AM EDT Ovidio Carmen MD 01/13/2025 7:08 AM Peripheral Block Patient location during procedure: pre-op Start time: 01/13/2025 7:00 AM End time: 01/13/2025 7:04 AM Reason for block: post-op pain management Staffing Performed: anesthesiologist Anesthesiologist: Ovidio Carmen MD Preanesthetic Checklist Completed: patient identified, IV checked, site marked, risks and benefits discussed, surgical consent, monitors and equipment checked, pre-op evaluation and timeout performed Peripheral Block Patient position: supine Prep: ChloraPrep Patient monitoring: continuous pulse ox and heart rate (NIBP) Block type: supraclavicular Laterality: right Injection technique: single-shot Guidance: ultrasound guided and Ultrasound image saved to chart Local infiltration: lidocaine Needle Needle type: short-bevel Needle gauge: 21 G Needle length: 5 cm Needle localization: ultrasound guidance (Ultrasound with tip visualized throughout) Medications Administered ropivacaine (NAROPIN) injection 0.5 % - perineural 30 mL - 01/13/2025 7:04:00 AM midazolam (VERSED) PF injection 1 mg/mL - intravenous 2 mg - 01/13/2025 7:00:00 AM fentaNYL (SUBLIMAZE) injection 50 mcg/mL - intravenous 50 mcg - 01/13/2025 7:00:00 AM Assessment Injection assessment: negative aspiration for heme, no paresthesia on injection, incremental injection with negative aspiration q 5ml and local visualized surrounding nerve on ultrasound Paresthesia pain: none Heart rate change: no Slow fractionated injection: yes Additional Notes Timeout performed with bedside RN. Anesthesia and surgical consent on chart. Standard aseptic technique: hat, mask, sterile gloves, eye protection. Monitors: NIBP, SpO2, EKG Sedation with meaningful contact. ChloraPrep to peripheral nerve block site. Ultrasound guidance throughout. Injectate: Ropivacaine 0.5% Volume: 30 mL Clonidine 100mcg mixed with local anesthetic. Martha-neural/fascial plane visualization of local anesthetic spread. Ultrasound image saved to chart. Block performed per surgeon request (ordered on chart). us Ovidio Carmen MD ANESTHESIA ORDERABLES Final R esult * MG Mammo Digital Screening w Bronson bilat (11/15/2024 10:32 AM EDT) Anatomical Region Laterality Modality Breast Bilateral Mammography 11/15/2024 12:4 2 PM EDT Impressions 11/15/2024 12:46 PM EDT Benign. BI-RADS CATEGORY: 2 - BENIGN RECOMMENDATION: Screening bilateral mammogram is recommended in 1 year. Mammo Location: [facility], [address] [place] [address], [place], . -------- FINAL REPORT -------- Dictated By: Stacie Talbot Dictated Date: 11/15/2024 12:42 ET Assigned Physician: Stacie Talbot Reviewed and Electronically Signed By: Stacie Talbot Signed Date: 11/15/2024 12:46 ET Workstation ID: [id number] Transcribed By: Self Edit Transcribed Date: 11/15/2024 12:42 ET Narrative 11/15/2024 12:46 PM EDT CLINICAL: 64 years old, Female, routine annual exam. COMPARISON: Mammograms dating back to 06/28/2021 with most recent of 11/04/2023. Right breast ultrasound/04/2024. TECHNIQUE: Bilateral MLO and CC views were obtained digitally with 3-D mammogram (digital breast tomosynthesis). Computer-aided detection was utilized in evaluation of this exam (CAD). FINDINGS: There is no evidence of suspicious mass or architectural distortion. No worrisome calcifications are evident. Previously documented cyst in the anterior medial right breast is again noted. There has been no significant change from prior exam(s). BREAST DENSITY: B - There are scattered areas of fibroglandular density. Procedure Note Stacie Talbot MD - 11/15/2024 CLINICAL: 64 years old, Female, routine annual exam. COMPARISON: Mammograms dating back to 06/28/2021 with most recent of11/04/2023. Right breast ultrasound/04/2024. TECHNIQUE: Bilateral MLO and CC views were obtained digitally with 3-Dmammogram (digital breast tomosynthesis). Computer-aided detection wasutilized in evaluation of this exam (CAD). FINDINGS: There is no evidence of suspicious mass or architectural distortion. Noworrisome calcifications are evident. Previously documented cyst in theanterior medial right breast is again noted. There has been nosignificant change from prior exam(s). BREAST DENSITY: B - There are scattered areas of fibroglandular density. IMPRESSION: Benign. BI-RADS CATEGORY: 2 - BENIGN RECOMMENDATION: Screening bilateral mammogram is recommended in 1 year. Mammo Location: [facility], [address] [place] [address], [id number], . -------- FINAL REPORT -------- Dictated By: Stacie Talbot Dictated Date: 11/15/2024 12:42 ET Assigned Physician: Stacie Talbot Reviewed and Electronically Signed By: Stacie Talbot Signed Date: 11/15/2024 12:46 ET Workstation ID: [id number] Transcribed By: Self Edit Transcribed Date: 11/15/2024 12:42 ET [facility] Fermín Willis MD IM BI PROCEDURES Final Result * (ABNORMAL) Comprehensive metabolic panel (08/16/2024 3:56 PM EDT) Sodium 137 133 - 145 mmol/L LAB CHEMISTRY METHOD 08/16/2024 6:05 PM EDT [facility] Potassium 4.3 3.5 - 5.5 mmol/L LAB CHEMISTRY METHOD 08/16/2024 6:05 PM EDT [facility] Chloride 105 96 - 110 mmol/L LAB CHEMISTRY METHOD 08/16/2024 6:05 PM EDT [facility] CO2 27 21 - 32 mmol/L LAB CHEMISTRY METHOD 08/16/2024 6:05 PM [facility] Anion Gap 5 3 - 11 LAB CHEMISTRY METHOD 08/16/2024 6:05 PM [facility] Glucose 113(H) 70 - 100 mg/dL LAB CHEMISTRY METHOD 08/16/2024 6:05 PM [facility] BUN 20 5 - 25 mg/dL LAB CHEMISTRY METHOD 08/16/2024 6:05 PM [facility] Creatinine 0.84 0.50 - 1.10 mg/dL LAB CHEMISTRY METHOD 08/16/2024 6:05 PM [facility] eGFR 77 >=60 mL/min/1. 73m2 LAB CHEMISTRY METHOD 08/16/2024 6:05 PM [facility] Comment:Calculation based on the Chronic Kidney Disease Epidemiology Collaboration (CKD-EPI) equation refit without adjustment for race. BUN/Creatinine Ratio 23.8 LAB CHEMISTRY METHOD 08/16/2024 6:05 PM [facility] Calcium 9.4 8.5 - 10.5 mg/dL LAB CHEMISTRY METHOD 08/16/2024 6:05 PM [facility] AST (SGOT) 18 10 - 42 unit/L LAB CHEMISTRY METHOD 08/16/2024 6:05 PM [facility] ALT (SGPT) 28 10 - 60 unit/L LAB CHEMISTRY METHOD 08/16/2024 6:05 PM [facility] Alkaline Phosphatase 90 42 - 121 unit/L LAB CHEMISTRY METHOD 08/16/2024 6:05 PM [facility] Total Protein 6.8 6.0 - 8.0 g/dL LAB CHEMISTRY METHOD 08/16/2024 6:05 PM [facility] Albumin 3.7 3.2 - 5.0 g/dL LAB CHEMISTRY METHOD 08/16/2024 6:05 PM [facility] Total Bilirubin 0.5 0.0 - 1.4 mg/dL LAB CHEMISTRY METHOD 08/16/2024 6:05 PM EDT [facility] Blood Venous blood specimen / Unknown Venipuncture / Unknown 08/16/2024 3:56 PM EDT 08/16/2024 3:56 PM EDT Kylee [facility] LAB BLOOD ORDERABLES Final Resu lt [facility] [address] [place] [address], [place] [phone] * Depression Screening (02/08/2024) [facility] Depression Screening Abstracted Historical Provider HEALTH MAINTENANCE Final Result * Lipid panel (10/03/2022) [facility] LDL/HDL Ratio 2 0 - 4 Triglycerides 90 0 - 150 mg/dL Cholesterol 160 0 - 200 mg/dL HDL 69 >=40 mg/dL LDL Cholesterol 73 0 - 100 mg/dL Blood Venous blood specimen / Unknown Historical Provider LAB BLOOD ORDERABLES Renea l Result * DXA BONE DENSITY STUDY 1+ SITS AXIAL SKEL (06/28/2021 3:06 PM EST) Anatomical Region Laterality Modality Bone Densitometr y 03/12/2021 11:3 6 AM EDT Narrative 06/28/2021 5:11 PM EST BONE DENSITY Lumbar Spine T-score is +1.7 (SD relative to 20-29 y/o adult) Z-score is +3.5 (SD relative to age matched peers) This is normal by criteria defined by the WHO. Left WRIST T-score is +0.5 Z-score is +1.9 This is normal by criteria defined by the WHO. Comparison exam(s): significant decrease in bone density of hip and wrist when compared to most recent bone density examination Confidence level is +/-95%. Impression: Based on the World Health Organization criteria, Norma Martinez should be classified as having normal bone density. The [facility] Department of Internal Medicine recommends using National Osteoporosis Foundation (NOF) guidelines in treatment decisions related to osteoporosis. NOF guidelines suggest considering treatment for postmenopausal women and men aged 50 or older presenting with the following: History of hip or vertebral fracture. T-score less than or equal to -2.5 (DXA) at the femoral neck, total hip, or spine, after appropriate evaluation to exclude secondary causes. Low bone mass (T-score between -1.0 and -2.5 at the femoral neck or spine) AND a 10-year probability of a hip fracture greater than or equal to 3% OR a 10-year probability of a major osteoporosis-related fracture greater than or equal to 20% based on the [place]-adapted WHO algorithm Please note that all treatment decisions require clinical judgment and consideration of individual patient factors, including patient preferences, co-morbidities, previous drug use, risk factors not captured in the FRAX model (e.g., frailty, falls, vitamin D deficiency, increased bone turnover, interval significant decline in bone density) and possible under- or over-estimation of fracture risk by FRAX. Procedure Note Catarina Deleon MD - 05/20/2022 BONE DENSITY Lumbar Spine T-score is +1.7 (SD relative to 20-29 y/o adult) Z-score is +3.5 (SD relative to age matched peers) This is normal by criteria defined by the WHO. Left WRIST T-score is +0.5 Z-score is +1.9 This is normal by criteria defined by the WHO. Comparison exam(s): significant decrease in bone density of hip and wristwhen compared to most recent bone density examination Confidence level is +/-95%. Impression: Based on the World Health Organization criteria, Norma Martinez shouldbe classified as having normal bone density. [facility] Department of Internal Medicine recommendsusing National Osteoporosis Foundation (NOF) guidelines in treatmentdecisions related to osteoporosis. NOF guidelines suggest consideringtreatment for postmenopausal women and men aged 50 or older presentingwith the following: History of hip or vertebral fracture. T-score less than or equal to -2.5 (DXA) at the femoral neck, total hip,or spine, after appropriate evaluation to exclude secondary causes. Low bone mass (T-score between -1.0 and -2.5 at the femoral neck or spine)AND a 10-year probability of a hip fracture greater than or equal to 3% ORa 10-year probability of a major osteoporosis-related fracture greaterthan or equal to 20% based on the [place]-adapted WHO algorithm Please note that all treatment decisions require clinical judgment andconsideration of individual patient factors, including patientpreferences, co-morbidities, previous drug use, risk factors not capturedin the FRAX model (e.g., frailty, falls, vitamin D deficiency, increasedbone turnover, interval significant decline in bone density) and possibleunder- or over-estimation of fracture risk by FRAX. Lisa Pablo MD IM DXA PROCEDURES Final Res ult * Colonoscopy (09/15/2018) [facility] Colonoscopy No Interpretation , Abstracted Anatomical Region Laterality Modality Other Historical Provider HEALTH MAINTENANCE Final Result * Hepatitis C Screening (02/15/2015) [facility] Hepatitis C Screening Abstracted Historical Provider HEALTH MAINTENANCE Final Result from Last 3 Months or Most Recently Relevant to Health Maintenance Insurance [facility] MEDIC[facility] Member Subscriber Plan / Payer (Ef fective 2020-Present) Name:NORMA MARTINEZ Relation to Subscriber:Self Name:Norma Martinez Payer ID:[id number] Group ID:[id number] Type:Not on file Address: [place] [address] [place] [id number] Advance Directives * Full Code - Default (Latest Code Status on File) Date Activated Date Inactivated Comments 01/13/2025 5:56 AM 01/13/2025 1:33 PM This is orde r is used when code status has not been discussed with the patient, or code status is otherwise unknown/unconfirmed To update the patient's code status, place a code status order. Do not modify or discontinue any currently active code status orders. Care Teams Hand Edge Bander Relationship Specialty Start Date End Date Christopher Willis MD [address] [place] [id number] PCP - General Internal Medicine 04/17/20
== END 2025-02-02 13:42 | disposition home or self-care (01) ==
PROVIDERS: PCP Pediatrics; Visit Provider Anesthesiology
DX: M54.12 Radiculopathy, cervical region (principal); M79.673 Pain in unspecified foot; M79.672 Pain in left foot; M21.6X2 Other acquired deformities of left foot; M54.50 Low back pain, unspecified; G89.4 Chronic pain syndrome; M19.90 Unspecified osteoarthritis, unspecified site
CPT/HCPCS: 99203

== ENCOUNTER → 2025-02-02 13:11 | Outpatient (BNVA) | payer OTHER, SELFPAY | PROVIDERS: PCP Pediatrics; Visit Provider Anesthesiology | DX: M54.12 Radiculopathy, cervical region (principal); M79.671 Pain in right foot; M79.672 Pain in left foot; M21.6X2 Other acquired deformities of left foot; M54.50 Low back pain, unspecified; G89.4 Chronic pain syndrome; M19.90 Unspecified osteoarthritis, unspecified site | CPT/HCPCS: 99202 ==

== ENCOUNTER 2025-03-21 06:14 | Outpatient (REF) | payer OTHER, SELFPAY ==
--- OUTSIDE RECORDS SUMMARY | 2025-03-21 06:16 | XMS_ITS | Clinical Summary ---
Author Organization [facility] Address [address] [place] [address] Care Team Providers Care Senior Business Broker Name Role Phone Unavailable Primary Care Provider [...]
--- OUTSIDE RECORDS SUMMARY | 2025-03-21 06:16 | XMS_ITS | Clinical Summary ---
Author Organization [facility] Address [address] [place] [address] Care Team Providers Care Public Speaking Professor Name Role Phone Kurt Willis MD Primary [...] COVID-19 Vaccine ( - 2023-2 5 season) 2025 RSV Vaccine 50 years and old er and Patients (1 - 1-dose 75+ series) 2033 Hepatitis B Vaccines Aged Out No long er eligible based on patient's age to complete this topic Care Teams Public Speaking Professor Relationship Specialty Start Date End Date Kurt Willis MD PCP - General
--- OUTSIDE RECORDS SUMMARY | 2025-03-21 06:17 | XMS_ITS | Clinical Summary ---
Author Organization [facility] Address [address] [place] [phone] Phone Care Team Providers Care Full Stack Php Developer Name Role Phone Christopher Willis MD Primary Care Provider [phone] Encounters Date Type Department Care Team Description 01/06/2025 Telephone [facility] Rheumatology [address] [place] [address] Unknown, Unknown, Referral from Last 3 Months Social History Tobacco Use Types Packs/Day Years Used Date Smoking Tobacco: Never Assessed Comments Unknown Sex and Gender Information Value Date Recorded Sex Assigned at Not on file Legal Sex Female 9:43 AM EDT Gender Identity Not on file Sexual Orientation Not on file Plan of Treatment Not on file Medical Devices Not on file Insurance [facility] [employer] MEDICARE REPLACEMENT [place] [id number] [facility] MEDICARE REPLACEMENT Care Teams Full Stack Php Developer Relationship Specialty Start Date End Date Christopher Willis MD [address] [place] [id number] PCP - General Internal Medicine 10/06/24 Additional Source Comments The information contained in this document represents components of the legal health record. It is not the complete legal health record.[facility]
--- OUTSIDE RECORDS SUMMARY | 2025-03-21 06:17 | XMS_ITS | Data Portability ---
Author Organization [place] - [facility], Allergy Address [address] [address] Care Team Providers Care Pattern Developer Name Role Phone ANGELO MCDANIEL Referring Provider Assessment Encounter Date Assessment Date Assessment LastModified by Organization Details LastModified Time 10/21/2024 10/21/2024 64-year-old femteresa sullivan with GERD presents for evaluation of postnasal drip x6 months. She also endorses nasal congestion, right-sided ear popping, forehead facial pressure, frequent sneezing, itchy eyes, and dry cough. Denies anosmia. Anterior rhinoscopy is benign without mucosal edema, purulence or polyps. Fiberoptic laryngoscopy is consistent with underlying gastroesophageal reflux disease. Recommend follow-up with quality lab technician , Ann Matthews, to optimize reflux management. She is scheduled for allergy evaluation with outside allergy practice. Will obtain CT sinus for further evaluation of chronic atypical facial pain and nasal congestion. We will call patient with results and recommendations. [email or web address] Not available 10/21/2024 17:29:10 Plan of Treatment Reminders Order Date Submit Date Provider Last Modified By Organization Details Last Modified Time Details Appointments None recorded. Lab None recorded. Referral None recorded. Procedures None recorded. Surgeries None recorded. Imaging CT, sinuses, w/o contrast 2024 025 VEENA [facility], [address] [facility], [facility] [address], [place], [address], 5 05:23:39 Medication Orders None recorded. Patient TargetsNo targets recorded. Patient InstructionsNo instructions recorded. Reason for Referral None Reported. Results Created Date Observation Date Name Description Value Unit Range Abnormal Flag Note LastModifiedBy Organization Detail LastModifiedTime 11/14/19 25 11/10/2024 CT, sinus es, w/o contr ast No observ ation record ed. [place] [id number] [facility] [address], [place], [address], 02/17/2025 08:39:12 11/14/19 25 11/10/2024 CT, sinus es, w/o contr ast No observ [place]ion [place] [id number] [facility] [address], [place], [address], 02/17/2025 08:39:13 Result Notes None recorded. Problems Name Problem SNOMED Code Status Onset Date Resolution Date Notes Provider Name and Address Organization Details Recorded Time Nasal congestion 64359295 Active 2024 THERESA LERMA PA-C [address], [place], [address], [place] - [facility] 13:03:22 Chronic sinusitis 85995384 Active 2024 [facility]MA PA[facility]C [address] [facility], [place], [address], [place] - [facility] 13:03:28 Gastroesophage al reflux disease without esophagitis 737752756 Active 2024 THERESA LERMA PA-C [address], [place], [address], [place] [facility] 17:28:20 Posterior rhinorrhea 52226015 Active 2024 THERESA LERMA PA-C [address] [facility], [place], [address], [place] [facility] 17:28:38 Problem Notes None recorded. Procedures Surgical History Date Name Laterality Status Provider Name and Address Organization Details Recorded Time 10/21/2024 FOL_Reflux _JMS completed THERESA LERMA PA-C [address], [place], [address], [place] - [facility] 10/21/2024 17:24:25 Imaging Results None recorded. Procedure Notes None recorded. Medical Equipment None Reported. Allergies No known drug allergies Medications Name Sig Start Date Stop Date Status Note LastModified by Organization Details LastModified Time cyclobenzap rine 10 mg tablet TAKE 1 TABLET BY MOUTH DAILY AT BEDTIME FOR MUSCLE SPASM active Not Available Not Available No t Available amoxicillin 500 mg capsule TAKE 1 CAPSULE BY MOUTH THREE TIMES DAILY UNTIL ALL TAKEN 10/21 completed Not Available Not Available Not Available atorvastati n 80 mg tablet TAKE 1 TABLET BY MOUTH DAILY active Not Available Not Available No t Available azithromyci n 250 mg tablet TAKE 2 TABLETS BY MOUTH TODAY, THEN TAKE 1 TABLET DAILY FOR 4 DAYS DIRECTED 10/21 completed Not Available Not Available Not Available meloxicam 15 mg tablet TAKE 1 TABLET BY MOUTH ONCE DAILY AFTER A MEAL active Not Available Not Available No t Available terbinafine HCl 250 mg tablet TAKE 1 TABLET BY MOUTH EVERY DAY active Not Available Not Available No t Available estradiol 0.025 mg/24 hr weekly transdermal patch USE DIRECTED: USE 1 PATCH WEEKLY DIRECTED active Not Available Not Available No t Available phenazopyri dine 100 mg tablet TAKE 1 TABLET BY MOUTH THREE TIMES DAILY FOR 3 DAYS FOR PAIN 10/21 completed Not Available Not Available Not Available pantoprazol e 40 mg tablet,amelia yed release TAKE 1 TABLET BY MOUTH DAILY BEFORE SUPPER. STOP OMEPRAZOL E AND CARAFATE active Not Available Not Available No t Available prednisone 50 mg tablet TAKE 1 TABLET BY MOUTH DAILY FOR 5 DAYS active Not Available Not Available No t Available gabapentin 300 mg capsule TAKE 1 CAPSULE BY MOUTH DAILY active Not Available Not Available No t Available montelukast 10 mg tablet active Not Available Not Available Not Available ammonium lactate 12 % topical cream APPLY EVERY MORNING AND EVERY EVENING TO DRY SKIN ON BODY active Not Available Not Available No t Available estradiol 0.01% (0.1 mg/gram) vaginal cream INSERT 1 GRAM VAGINALLY 3 TIMES A WEEK DIRECTED active Not Available Not Available No t Available methylpredn isolone 4 mg tablets in a dose pack FOLLOW PACKAGE DIRECTION S 10/21 completed Not Available Not Available Not Available celecoxib 100 mg capsule TAKE 1 CAPSULE BY MOUTH DAILY active Not Available Not Available No t Available ondansetron 4 mg disintegrat ing tablet DISSOLVE 1 TABLET ON THE TONGUE EVERY 8 HOURS NEEDED FOR NAUSEA 10/21 completed Not Available Not Available Not Available fluticasone propionate 50 mcg/actuati on nasal spray,suspe nsion SHAKE LIQUID AND USE 1 SPRAY IN EACH NOSTRIL TWICE DAILY active Not Available Not Available No t Available ipratropium bromide 21 mcg (0.03 %) nasal spray USE 2 SPRAYS IN EACH NOSTRIL EVERY 12 HOURS active Not Available Not Available No t Available metoprolol tartrate 25 mg tablet TAKE 1/2 TABLET BY MOUTH TWICE DAILY active Not Available Not Available No t Available nitrofurant oin monohydrate /macrocryst als 100 mg capsule TAKE 1 CAPSULE BY MOUTH EVERY 12 HOURS FOR 5 DAYS 10/21 completed Not Available Not Available Not Available duloxetine 60 mg capsule,del ayed release TAKE 1 CAPSULE BY MOUTH DAILY active Not Available Not Available No t Available Linzess 145 mcg capsule TAKE 1 CAPSULE BY MOUTH DAILY 10/21 completed Not Available Not Available Not Available Linzess 72 mcg capsule TAKE 1 CAPSULE BY MOUTH DAILY 10/21 completed Not Available Not Available Not Available Gemtesa 75 mg tablet TAKE 1 TABLET BY MOUTH DAILY active Not Available Not Available No t Available Vitals Date Recorded Body height Body mass index (BMI) Body weight Provider Name and Address Organization Details Last Updated DateTime 10/21/2024 162.56 cm 39.5 kg/m2 943859.25 g RINA MORRISON [place] - [facility] 10/21/2024 10:19:17 Social History None recorded. Functional Status None recorded. Mental Status None recorded. Family History Nothing Reported. Medical History Condition Response Allergies/Hayfever Y GERD/Reflux Y Gynecological HistoryNo gynecological history recorded. Obstetrics History GPAL:G 0 P 0 0 0 0 Past Encounters Encounter ID Performer Location Encounter Start Date Encounter Closed Date Diagnosis/Indication Diagnosis SNOMED-CT Code Diagnosis ICD10 Code Diagnosis IMO Codes Diagnosis Note [id number] THERESA LERMA PA-C [facility] [address] [address] 10/21/2024 10:09:16 10/21/2024 10:51:31 Nasal congestion 86805425 R09.81 86900 Gastroesop hageal reflux disease without esophagitis 968329952 K21.9 552234 Posterior rhinorrhea 758 87438 J34.89 676719 Health Concerns Section Related Observation LastModified by Organization Detai ls LastModified Time None Recorded Concern Status LastModified by Organization Details LastModified Time None Recorded Advance Directives Directive None Recorded Payers Insurance Date Sequence Insurance Name Policy Number Policy Glynn Covered Member ID Glynn Member ID Guarantor Name 10/21/2024 1 [place] [employer] [facility] Norma Kaplan Lucina [id number] Norma Lucina 10/27/2024 1 [facility] - DOS ON OR AFTER 2022 - MEDICARE ADVANTAGE [place] (MEDICARE REPLACEMENT/AD VANTAGE - PPO) Norma Kaplan Lucina [id number] Norma Lucina Notes Date Note Type Note Provider Name and Address Organization Details Recorded Time 10/21/2024 text/html ROS as noted in the HPI 64-year-old female presents for evaluation of postnasal drip. This started 6-9 months ago, and has been consistent since. Refractory to oral antihistamine, intranasal steroid sprays, and monteleukast. Today she endorses nasal congestion, right sided ear popping, and forehead facial pressure. She also endorses frequent sneezing, itchy eyes, and dry cough. Denies anosmia. Subjective history of annual sinus infections treated with antibiotics. No known environmental allergies. No history of head or neck surgery. She believes she is scheduled with an resource paraprofessional for environmental allergy testing. Recently dx with obstructive sleep apnea and started CPAP 2 months ago. Persistent tiredness, and plans to follow up with sleep specialist for machine adjustments. Followed by quality lab technician, Ann Matthews, at [facility] who prescribes pantoprazole 40 mg daily for gastroesophageal reflux disease. THERESA LERMA PA-C [address] [place] [address], [id number], [facility] - [facility] 10/21/2024 17:29:32 OBGyn Episode No OBEpisode recorded.
--- OUTSIDE RECORDS SUMMARY | 2025-03-21 06:17 | XMS_ITS | Data Portability ---
Author Organization [place] - [facility],, LISA PABLO MD Address [address] [address] Care Team Providers Care City Council Member Name Role Phone ENRIQUETA NORTH OTHER Assessment No assessment recorded. Plan of Treatment Reminders Order Date Submit Date Provider Last Modified By Organization Details Last Modified Time Details Appointments None recorded. Lab pap test, thinprep, cervical 2020 021 [email or web address] [facility], Cytopathology Service, [address] [place], [address], 1 07:32:10 urinalysi s, dipstick 2019 020 [email or web address] In-Office Order, Internal Use Only DO Not Attach Compendium DO Not Attach Compendium, Do Not Delete/merge, [id number] 0 07:23:42 culture, urine 2019 020 [facility], [address] [place], [address], 0 13:25:33 pap test, thinprep, cervical 2018 019 [email or web address] [facility], Cytopathology Service, [address] [place], [address], 9 08:21:32 pap test, thinprep, cervical 2016 017 [facility], Cytopathology Service, [address] [place], [address], 7 11:40:18 fecal occult blood, stool 2016 017 [email or web address] In-Office Order, Internal Use Only DO Not Attach Compendium DO Not Attach Compendium, Do Not Delete/merge, [id number] 7 07:54:55 Referral None recorded. Procedures None recorded. Surgeries None recorded. Imaging MAMMO, screening , digital, bilateral 2020 021 [facility] ([facility]), [address], [place], [address], 2 12:03:39 bone density 2020 021 [facility] ([facility]), [address] [place], [address], 2 18:13:56 MAMMO, screening , digital, bilateral 2018 019 [facility] ([facility]), [address] [place], [address], 0 07:32:59 bone density 2018 019 [facility] ([facility]), [address] [place], [address], 0 07:32:59 MAMMO, screening , digital, bilateral 2016 017 [facility] [address] [place], [address], 8 14:27:32 Medication Orders fluconazo le 150 mg tablet 2021 022 [facility]128, [address] [place], [place], [id number], 2 13:54:00 estradiol 0.01% (0.1 mg/gram) vaginal cream 2019 020 [email or web address] 1 [facility]14471, [address] [place], [place], [id number], 0 14:07:23 triamcino lone acetonide 0.1 % topical ointment 2018 019 INTERFACE [facility] #72031, [address] [place], [place], [id number], 9 13:47:58 Patient TargetsNo targets recorded. Patient Instructions Encounter Date Encounter Id Patient Instructions Last Modified By Organization Details Last Modified Time 05/18/2017 [id number] self breast exam education [email or web address] Not available 05/18/2017 13:47:57 She is here for annual exam, is just recovering from pneumonia after influenza. Note from last year: She is here for annual exam, is doing well, she lost 51 pounds with diet and exercise. She has had no vaginal bleeding since 05/2015. She has noted a lack of libido for years, her is 10 years younger blanco her and this is a problem. she does have dryness nad dyspareunia not resolved the dyspareunia. She appears to be doing well. She is advised to get 1500 mg of calcium daily into her diet and supplements combined. We discussed the benefits of adequate vitamin D supplementation to at least 400 units daily, daily aerobic exercise of 30 minutes, and stress reduction. Monthly self breast exam was taught, and stressed, and is advised to call if she discovers any new mass in the breast. Seat belt use for herself and passengers advised. The significant health benefits of becoming and remainig fit, with an optimal BMI, were also discussed. We discussed the potential reduction in chronic discomfort, the diminished risks of hypertension, diabetes, and heart disease with the proper weight management, and improved mobility as she ages. Strategies to reach and maintain her target weight wer discussed in detail, all questions answered. Not available 05/18/2017 13:45:53 03/03/2019 [id number] atrophic vaginit is: care instructions [email or web address] Not available 03/03/2019 13:47:54 She is here for annual exam, had her lap band removed recently, after 5 years, due to gastric ulcer. She also had left thumb repeat surgery this year. Her 51 year old left his job and is unemployed, this is also stressful. He fixes machines. note from 05/2017: She is here for annual exam, is just recovering from pneumonia after influenza. __ She appears to be doing well. She notes some vulvar pruritus, on exam she has outer vulvar itching on and off, has run out of Aristocort, it worked to control this. Renewal call in. She is advised to get 1500 mg of calcium daily into her diet and supplements combined. There is a health benefit with adequate vitamin D supplementation to at least 400 units daily, daily aerobic exercise of 30 minutes, and stress reduction. Monthly self breast exam was taught, and stressed, and is advised to call if she discovers any new mass in the breast. Seat belt use for herself and passengers are advised. There are significant health benefits of becoming and remainig fit, with an optimal BMI. There is a potential reduction in chronic discomfort, diminished risks of hypertension, diabetes, and heart disease with the proper weight management. With a recommended BMI there can be improved mobility as she ages. Strategies to reach and maintain her target weight were discussed in detail. patrice Not available 03/03/2019 13:49:20 12/13/2019 [id number] atrophic vaginit is: care instructions [email or web address] Not available 12/13/2019 14:07:23 urinary tract infection in women information patrice Not available 12/13/2019 14:07:22 Stress Incontinence: Care Instructions [email or web address] Not available 12/13/2019 14:07:37 She is here for a problem visit as she has developed urge incontinence and increased frequency of urination. This has bene slowly worsening for over a year. 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 She also notes she has not been sexually active in 2 years because of mild discomfort and complete disinterest. Urine dip is negative, will check culture. We discussed that she could have atrophic urethritis that may benefit from E2 cream, and this might also improve her dyspareunia. She would like to try this. If no improvement in 3 months then she should contact a urologist to look for an unstable bladder. This was expalined in great detail, all questions answered. RX estradiol cream one half gram daily in vaginal canal. Also, issues of libido discussed, and ways to improve their intimacy experience discussed. Face to face discussion 25 minutes patrice Not available 12/13/2019 14:12:24 03/11/2021 [id number] atrophic vaginit is: care instructions patrice Not available 03/11/2021 14:17:41 learning about healthy weight patrice Not available 03/11/2021 14:17:41 She is here for annual exam, is doing well, but her niece by marriage was age 29 and had an allergic reaction at a wedding, and , she is grieving. I've never cried so much. Note from 2019: She is here for annual exam, had her lap band removed recently, after 5 years, due to gastric ulcer. She also had left thumb repeat surgery this year. Her 51 year old left his job and is unemployed, this is also stressful. He fixes machines. __ We discussed issues of decreased libido, and she is considering going back on the E2 vaginal treatment, she will look into the costs of the options and then get back to me. The urologist started her on an oral pill . Gonzalo, has only been on a short while, thinks it may be helping. She appears to be doing well. She is advised to get 1500 mg of calcium daily into her diet and supplements combined. We discussed the benefits of adequate vitamin D supplementation to at least 400 units daily, daily aerobic exercise of 30 minutes, and stress reduction. Monthly self breast exam was taught, and stressed, and is advised to call if she discovers any new mass in the breast. Not available 03/11/2021 14:17:39 09/23/2021 [id number] atrophic vaginit is: care instructions Not available 09/23/2021 14:00:45 vaginal yeast infection: care instructions Not available 09/23/2021 13:53:52 urinary retentio n: care instructions Not available 09/23/2021 14:00:45 This visit is a phone telehealth visit. The patient consented to the visit by phone. The patient was at home at the time of the call and the provider and patient were the only people on the line. I was at [address] [place] [address], [address], [place], [place], at the time of the call. She has her two week post op appointment tomorrow, after her sling surgery. She is very worried because she is still unable to void sometimes and she would like a second opinion about all this. She was unable to void so she cath'd herself this am at 5:45 am and got out 17 oz., (500 cc) she then voided 25 cc at 8;30 am. At 10:40 am spontaneously voided 75 cc, She cath'd immediately and got out 75 cc. At noon she voided 75 cc, then at 1 pm voided 100 cc. She has been taking 3 different antibiotics as she has had a recurrent UTI, likely after self cath'ing. Her urologist put an Estring in after surgery. We discussed that she could not void because her bladder was overly full. She is advised to stop drinking Coke Zero in the afternoon, and to try to void in the middle of the night so that her bladder never gets overly full. She appears to be able to void spontaneously when she has smaller amounts in the bladder. As the inflammation after surgery subsides this may also improve. She is to see her surgeon tomorrow and will discuss this with him further. She is called in rx for diflucan as she has taken multiple antibiotics so will likely get a vaginal yeast infection. All questions answered. We also discussed her gastric ulcer, she is taking prilosec 40 mg a day, but is drinking a cup of coffee every morning, advised to switch to green tea, and to cut out coffee and acidic foods, we review common ones. The patient was agreeable to this plan. She is aware of the limitations caused by the covid restrictions, and this phone call, but was appreciative of the efforts to complete the evaluation. Face to face discussion 40 minutes Not available 09/23/2021 13:59:46 Reason for Referral None Reported. Results Created Date Observation Date Name Description Value Unit Range Abnormal Flag Note LastModifiedBy Organization Detail LastModifiedTime 05/18/20 17 05/18/2017 fecal occul t blood , stool Occult Blood negati ve Not Available In-Office Order Internal Use Only DO Not Attach Compendium DO Not Attach Compendium, Do Not Delete/merge, [id number] 05/18/2017 13:27:36 05/18/20 17 05/18/2017 pap, LB [id number] ThinP rep Pap and Cell Block : NEGAT ERMELINDA FOR SQUAM OUS INTRA EPITH ELIAL FE Bourgeois AND BO BENAVIDEZ . Steve moore, CT( CP) (Case Screcash rei 05 20 2017) Adia De Leon M.D., Patho logis t (Case elect megan nunez delaney d 05 21 2017) ADEQU ACY: Satis facto ry. Endoc ervic al/tr ansfo rmati on zone compo nent prese nt. SOURC E: ThinP rep Pap HPV IF ASCUS , Cervi rell, Image d CLINI RELL INFOR WILLIAN N: HPV If Diagn osis of ASCUS . Menop ause, lps 05/16 neg, z12.4 Not Available [facility], Cytopathology Service [address] [place], [address], 05/22/2017 11:40:18 03/03/20 19 03/03/2019 pap test, thinp rep, cervi rell [id number] ThinP rep Pap, Image d: NEGAT ERMELINDA FOR SQUAM OUS INTRA EPITH ELIAL LESIO N AND MALIG REEMA . Ambrocio Dana bk [place] , CT( CP) (Case elect megan nunez delaney d 03 08 2019) ADEQU ACY: Satis facto ry Endoc ervic al/tr ansfo rmati on zone compo nent prese nt. SOURC E: ThinP rep Pap HPV IF ASCUS , Cervi rell, Image d CLINI RELL INFOR MATIO N: HPV If Diagn osis of ASCUS . LPS 05/18 NEG [Z12. 4] Not Available [facility], Cytopathology Service [address] [place], [address], 03/08/2019 14:16:47 12/13/19 20 12/13/2019 cultu re, urine comments [facility], a membe r of [employer] [address] [place] [address] Medic al Dire fred bourgeois MD SOUR E: URINE ,JINNY N CATCH ; Not Available [facility] [address] [place] [address], [address], 12/15/2019 13:19:52 12/13/1912/15/2019 cultu re, urine urine culture [facility], a membe r of [facility] [address] [place] [address] Medic al Dire fred bourgeois MD COLLE CTION TIME: 2019 2:00: 00 PM -04:0 0 URINE CULTU RE <10,0 00 CFU/m L F URINE CULTU RE JAY L SKIN/ UROGE NITAL FRANCISCO PRESE NT. F Not Available [facility] [address] [place] [address], [address], 12/15/2019 13:19:52 12/13/1912/13/2019 urina lysis , dipst ick GLU Negati ve Not Available In-Office Order Internal Use Only DO Not Attach Compendium DO Not Attach Compendium, Do Not Delete/merge, 12/13/2019 13:46:46 12/13/1912/13/2019 urina lysis , dipst ick RUTHANN Negati ve Not Available In-Office Order Internal Use Only DO Not Attach Compendium DO Not Attach Compendium, Do Not Delete/merge, 12/13/2019 13:46:46 12/13/1912/13/2019 urina lysis , dipst ick KET Negati ve Not Available In-Office Order Internal Use Only DO Not Attach Compendium DO Not Attach Compendium, Do Not Delete/merge, 12/13/2019 13:46:46 12/13/1912/13/2019 urina lysis , dipst ick SG 1.015 Not Available In-Office Order Internal Use Only DO Not Attach Compendium DO Not Attach Compendium, Do Not Delete/merge, 12/13/2019 13:46:46 12/13/1912/13/2019 urina lysis , dipst ick BLO Negati ve Not Available In-Office Order Internal Use Only DO Not Attach Compendium DO Not Attach Compendium, Do Not Delete/merge, 12/13/2019 13:46:46 12/13/1912/13/2019 urina lysis , dipst ick pH 7.0 Not Available In-Office Order Internal Use Only DO Not Attach Compendium DO Not Attach Compendium, Do Not Delete/merge, 12/13/2019 13:46:46 12/13/1912/13/2019 urina lysis , dipst ick PRO Negati ve Not Available In-Office Order Internal Use Only DO Not Attach Compendium DO Not Attach Compendium, Do Not Delete/merge, 12/13/2019 13:46:46 12/13/1912/13/2019 urina lysis , dipst ick URO 0.2 E.U. / dl Not Available In-Office Order Internal Use Only DO Not Attach Compendium DO Not Attach Compendium, Do Not Delete/merge, [id number] 12/13/2019 13:46:46 12/13/19 20 12/13/2019 urina lysis , dipst ick NIT negati ve Not Available In-Office Order Internal Use Only DO Not Attach Compendium DO Not Attach Compendium, Do Not Delete/merge, [id number] 12/13/2019 13:46:46 12/13/19 20 12/13/2019 urina lysis , dipst ick CARLEEN Negati ve Not Available In-Office Order Internal Use Only DO Not Attach Compendium DO Not Attach Compendium, Do Not Delete/merge, [id number] 12/13/2019 13:46:46 03/11/20 21 03/11/2021 PAP1C ASE [id number] ThinP rep Pap, Image d: NEGAT ERMELINDA FOR SQUAM OUS INTRA EPITH ELIAL LESIO N AND MALSOBEIDA JUAREZCY . Faustino Reese r , CT( CP) (Case elect megan nunez delaney d 03 24 2021) ADEQU ACY: Satis facto ry Endoc ervic al/tr ansfo rmati on zone compo nent prese nt. SOURC E: ThinP rep Pap HPV IF ASCUS , Cervi rell, Image d CLINI RELL INFOR MATIO N: HPV If Diagn osis of ASCUS . LPS NEG, Z12.4 . Not Available [facility], Cytopathology Service [address] [place], [address], 03/25/2021 07:55:41 02/10/20 18 02/06/2018 MAMMO , scree judit, digit al, bilat eral No observ ation record ed. Not Available 01/30 14:37:00 02/11/20 19 02/10/2019 MAMMO , scree judit, digit al, bilat eral No observ ation record ed. [email or web address] [facility] ([facility]) [address] [place], [address], 02/11/2019 08:59:33 06/28/19 22 06/28/2021 bone densi ty No observ ation record ed. [email or web address] Not Available 2021 10:17:15 07/01/19 22 06/28/2021 MAMMO , scree judit, digit al, bilat eral No observ ation record ed. Not Available 06/03 12:04:54 10/22/19 23 10/20/2022 MAMMO , scree judit, digit al, bilat eral No observ ation record ed. Not Available 09/30 08:21:27 Result Notes None recorded. Problems Name Problem SNOMED Code Status Onset Date Resolution Date Notes Provider Name and Address Organization Details Recorded Time Postmenopaus al bleeding 28434242 Active Lisa Pablo MD [address], [place], [address], [place] - [facility], 09:53:52 Menopausal syndrome 541080543 Active Lisa Pablo MD [address], [place], [address], [place] - [facility], 09:53:52 Biliuria 58049077 Active Lisa Pablo MD [address], [place], [address], [place] - [facility], 5 09:53:52 Obesity 247037812 Active had lap band surgery Lisa Pablo MD [address], [place], [address], [place] [facility], 5 09:53:52 Pain in female pelvis 623106629 Active Lisa Pablo MD [address], [place], [address], [place] - [facility], 09:53:52 Knee pain Active Lisa Pablo MD [address], [place], [address], [place] - [facility], 5 09:53:52 Pruritic disorder 416447914 Active Lisa Pablo MD [address], [place], [address], [place] [facility], 5 09:53:52 Acute lower urinary tract infection 950000272 Active Lisa Pablo MD [address], [place], [address], [place] [facility], 5 09:53:52 Pain of hip region 42581325 Active Lisa Pablo MD [address], [place], [address], [place] [facility], 5 09:53:52 Malaise and fatigue 810315853 Active Lisa Pablo MD [address], [place], [address], [place] [facility], 5 09:53:52 Vitamin D deficiency 08349370 Active Lisa Pablo MD [address], [place], [address], [place] [facility], 5 09:53:52 Osteoarthrit is 267924493 Active 2015 Stefani morejon [place] - [facility], 6 13:28:06 Atrophic vaginitis 12523283 Active 2019 Lisa Pablo MD [address], [place], [address], [place] [facility], 0 14:06:54 Increased frequency of urination 766426352 Active 2019 Lisa Pablo MD [address], [place], [address], [place] [facility], 0 14:07:07 Urinary incontinence 338092646 Active 2019 Lisa Pablo MD [address], [place], [address], [place] - [facility], 14:07:15 Problem Notes None recorded. Procedures Surgical History Date Name Laterality Status Provider Name and Address Organization Details Recorded Time 10/21/19 23 Most Recent Mammogram completed Adwoa Martin [place] - [facility], 03/09/2023 08:17:06 08/17/19 22 procedure on urinary bladder completed Mel Ford [place] - [facility], 09/23/2021 13:21:35 04/11/20 20 Knee arthroscopy/surg shruthi completed Adwoa Martin [place] - [facility], 03/11/2021 13:08:41 12/31/19 19 Thumb tendon transfer completed Adwoa Martin [place] - [facility], 03/03/2019 13:10:14 05/15/20 15 Endometrial Biopsy completed Lisa Pablo MD [address], [place], [address], [place] - [facility], 05/15/2015 09:54:52 05/08/20 15 Most Recent Bone Density completed Stefani Herring [place] - [facility], 05/16/2016 13:30:08 06/01/19 14 laparoscopic adjustable gastric banding completed Lisa Pablo MD [address], [place], [address], [place] - [facility], 03/03/2019 13:20:13 12/31/19 13 Other completed Stefani Herring [place] - [facility], 03/23/2014 13:10:39 06/01/19 13 Other completed Stefani Herring [place] - [facility], 03/23/2014 13:11:16 06/01/19 13 Other completed Stefani Herring [place] - [facility], 03/23/2014 13:12:36 06/01/19 12 Other completed Adwoa Martin [place] - [facility], 08/10/2012 11:48:20 06/01/19 11 Other completed Stefani Herring [place] - [facility], 03/23/2014 13:10:39 06/01/18 97 Tubal Ligation completed Adwoa Martin [place] in [facility], 08/10/2012 11:48:20 Imaging Results None recorded. Procedure Notes None recorded. Medical Equipment None Reported. Allergies Allergen ID Allergen Name Allergen Category Reaction Reaction Severity Criticality Documentation Date Start Date Code Code System Note Provider Name and Address Organization Details Recorded Time Cymbalta medicatio n other Not available Not available 05/18/2017 66164 4 RxNorm Skin sukhdev d off hands Adwoa Martin AL[place] morejon in [facility], 1 12:57:55 7081 Bactrim medicatio n hives Not available Not available 08/10/2012 28569 9 RxNorm Mel MccormickALAN vazquez in [facility], 2 13:15:21 Medications Name Sig Start Date Stop Date Status Note LastModified by Organization Details LastModified Time sertraline tab 50mg active Not Available Not Available Not Available methocarbam tab 500mg active Not Available Not Available No t Available amoxicillin 500 mg caps active Not Available Not Available Not Available tramadol hcl tab 50mg active Not Available Not Available Not Available guaiatussin ac 100-10 mg/5ml syrp active Not Available Not Available Not Available voltaren gel 1% active Not Available Not Available Not Available erythromyci n 5 mg/gm oint active Not Available Not Available Not Available hydroxyz hcl tab 25mg active Not Available Not Available Not Available hydroco/apa p tab 5-500mg active Not Available Not Available Not Available oxycodone/a cetaminophe n 5-325 mg tabs active Not Available Not Available Not Available hydromorpho n tab 2mg active Not Available Not Available No t Available amoxicillin /clavulanat e potassium 875-125 mg tabs 05/16 completed Not Available Not Available Not Available lyrica 150 mg caps active Not Available Not Available Not Available vitamin d cap 59266pmu active Not Available Not Available Not Available virtussin a/c 100-10 mg/5ml soln active Not Available Not Available Not Available chlorhexidi ne gluconate 0.12 % soln active Not Available Not Available Not Available ibuprofen tab 800mg active Not Available Not Available No t Available morphine sul tab 15mg er active Not Available Not Available Not Available azithromyci n tab 250mg active Not Available Not Available Not Available hydromet syp 5-1.5/5 active Not Available Not Available Not Available meloxicam tab 7.5mg active Not Available Not Available No t Available apap/codein e tab 300-30mg active Not Available Not Available Not Available triamcinolo n oin 0.1% active Not Available Not Available N ot Available pantoprazol e tab 40mg active Not Available Not Available N ot Available amoxicillin 500 mg tabs active Not Available Not Available Not Available nabumetone tab 500mg active Not Available Not Available No t Available nabumetone 750 mg tabs 05/16 completed Not Available Not Available Not Available naproxen 250 mg tabs 05/16 completed Not Available Not Available Not Available proair hfa aer active Not Available Not Available Not Available omeprazole cap 20mg active Not Available Not Available Not Available warfarin tab 1mg active Not Available Not Available Not Available tramadol hcl 50 mg tabs active Not Available Not Available Not Available triamcinolo ne acetonide 0.1 % oint active Not Available Not Available N ot Available celecoxib 200 mg capsule TAKE 1 CAPSULE BY MOUTH EVERY DAY active Not Available Not Available No t Available amoxicillin 500 mg capsule TAKE ONE CAPSULE BY MOUTH TWICE DAILY active Not Available Not Available No t Available atorvastati n 80 mg tablet TAKE 1 TABLET BY MOUTH DAILY active Not Available Not Available No t Available nystatin 100,000 unit/mL oral suspension active Not Available Not Available N ot Available Estring 2 mg (7.5 mcg/24 hour) vaginal ring INSERT 1 RING VAGINALLY EVERY 90 DAYS active Not Available Not Available No t Available gabapentin 600 mg tablet TAKE 1 TABLET BY MOUTH EVERY MORNING AND 1/2 TABLET IN THE AFTERNOON AND 1 TABLET AT BEDTIME 03/11 completed Not Available Not Available Not Available doxycycline hyclate 100 mg capsule 03/03 completed Not Available Not Available Not Available Carafate 100 mg/mL oral suspension TK 10 MLS PO QID AC AND NIGHTLY 03/03 completed Not Available Not Available Not Available nabumetone 750 mg tablet TK 1 T PO BID WITH FOOD 05/16 completed Not Available Not Available Not Available Vitamin C 500 mg tablet TK 1 T PO QD 03/03 completed Not Available Not Available Not Available azithromyci n 250 mg tablet 05/16 completed Not Available Not Available Not Available tizanidine 4 mg tablet 12/12 completed Not Available Not Available Not Available fluconazole 150 mg tablet TAKE 1 TABLET BY MOUTH EVERY WEEK FOR 13 DAYS. active Not Available Not Available No t Available tolterodine ER 4 mg capsule,ext ended release 24 hr TAKE ONE CAPSULE BY MOUTH EVERY DAY active Not Available Not Available No t Available fluconazole 200 mg tablet TAKE 1 TABLET BY MOUTH ONCE DAILY 09/23 completed Not Available Not Available Not Available meloxicam 15 mg tablet TK 1 T PO QD 03/03 completed Not Available Not Available Not Available sucralfate 1 gram tablet TAKE 1 TABLET BY MOUTH FOUR TIMES DAILY active Not Available Not Available No t Available metronidazo le 0.75 % (37.5 mg/5 gram) vaginal gel I 1 APL VAGINALLY HS FOR 5 DAYS 03/03 completed Not Available Not Available Not Available ondansetron HCl 4 mg tablet TAKE 1 TABLET BY MOUTH EVERY 8 HOURS NEEDED FOR NAUSEA. MAX 12 MG DAILY active Not Available Not Available No t Available prednisone 20 mg tablet 12/12 completed Not Available Not Available Not Available prednisone 5 mg tablet 03/11 completed Not Available Not Available Not Available naproxen 250 mg tablet active Not Available Not Available Not Available sulindac 150 mg tablet TAKE 1 TABLET BY MOUTH TWICE DAILY WITH MEALS 03/11 completed Not Available Not Available Not Available metronidazo le 500 mg tablet TAKE 1 TABLET BY MOUTH THREE TIMES DAILY 09/23 completed Not Available Not Available Not Available hydroxyzine HCl 50 mg tablet TK 1 T PO TID PRF ANXIETY OR MAY TK 30 MIN BEFORE HS PRN FOR SLEEP 03/03 completed Not Available Not Available Not Available acetaminoph en 300 mg-codeine 30 mg tablet 05/18 completed Not Available Not Available Not Available ciprofloxac in 250 mg tablet TAKE 1 TABLET BY MOUTH TWICE DAILY ON PROCEDURE DATE 09/23 completed Not Available Not Available Not Available ciprofloxac in 500 mg tablet TAKE 1 TABLET BY MOUTH TWICE DAILY active Not Available Not Available No t Available sulfamethox azole 800 mg-trimetho prim 160 mg tablet TAKE 1 TABLET BY MOUTH TWICE DAILY 09/23 completed Not Available Not Available Not Available omeprazole 40 mg capsule,del ayed release TAKE 1 CAPSULE BY MOUTH EVERY MORNING BEFORE BREAKFAST active Not Available Not Available No t Available tramadol 50 mg tablet TAKE 1 TABLET BY MOUTH THREE TIMES DAILY NEEDED FOR PAIN. MAY PARTIALFI LL.. active Not Available Not Available No t Available amoxicillin 500 mg tablet TAKE 4 TABLETS BY MOUTH 1 HOUR BEFORE DENTAL APPOINTME NT 09/23 completed Not Available Not Available Not Available nortriptyli ne 25 mg capsule TAKE 1 CAPSULE BY MOUTH AT BEDTIME 03/11 completed Not Available Not Available Not Available ciclopirox 8 % topical solution active Not Available Not Available Not Available oxycodone-a cetaminophe n 5 mg-325 mg tablet 03/03 completed Not Available Not Available Not Available amoxicillin 875 mg tablet 12/12 completed Not Available Not Available Not Available hydromorpho ne 2 mg tablet 03/11 completed Not Available Not Available Not Available famotidine 20 mg tablet TAKE 1 TABLET BY MOUTH AT BEDTIME NEEDED FOR HEARTBURN active Not Available Not Available No t Available methocarbam ol 750 mg tablet TAKE 1 TABLET BY MOUTH THREE TIMES DAILY FOR 10 DAYS. MAY CAUSE SEDATION. . 03/11 completed Not Available Not Available Not Available DOK 100 mg capsule 03/11 completed Not Available Not Available Not Available aspirin 325 mg tablet,amelia yed release 09/23 completed Not Available Not Available Not Available oxycodone-a cetaminophe n 10 mg-325 mg tablet active Not Available Not Available No t Available dicyclomine 20 mg tablet TAKE 1 TABLET BY MOUTH FOUR TIMES DAILY NEEDED FOR ABDOMINAL CRAMPS active Not Available Not Available No t Available ciprofloxac in 0.3 % eye drops 05/16 completed Not Available Not Available Not Available diazepam 2 mg tablet TAKE 1 TABLET BY MOUTH 1 HOURS PRIOR TO PROCEDURE 03/11 completed Not Available Not Available Not Available phenazopyri dine 100 mg tablet TAKE 1 TABLET BY MOUTH THREE TIMES DAILY active Not Available Not Available No t Available baclofen 10 mg tablet TAKE 1 TABLET BY MOUTH AT BEDTIME NEEDED FOR SPASM active Not Available Not Available No t Available benzonatate 100 mg capsule TK 1 C PO TID PRN 03/03 completed Not Available Not Available Not Available cephalexin 500 mg capsule 03/03 completed Not Available Not Available Not Available pantoprazol e 40 mg tablet,amelia yed release TAKE 1 TABLET BY MOUTH DAILY BEFORE SUPPER. STOP OMEPRAZOL E AND CARAFATE active Not Available Not Available No t Available erythromyci n 5 mg/gram (0.5 %) eye ointment active Not Available Not Available Not Available nortriptyli ne 10 mg capsule TK 1 C PO HS 03/11 completed Not Available Not Available Not Available oseltamivir 75 mg capsule 12/12 completed Not Available Not Available Not Available triamcinolo ne acetonide 0.1 % topical ointment APPLY A THIN LAYER AA TOPICALLY BID active Not Available Not Available No t Available nystatin 100,000 unit/gram topical cream APPLY IN THE MORNING AND EVENING TO THE ABDOMINAL FOLD active Not Available Not Available No t Available prednisone 50 mg tablet TAKE 1 TABLET BY MOUTH ONCE DAILY FOR 5 DAYS active Not Available Not Available No t Available oxybutynin chloride ER 5 mg tablet,exte nded release 24 hr TAKE 1 TABLET BY MOUTH DAILY 03/11 completed Not Available Not Available Not Available gabapentin 300 mg capsule TAKE 1 CAPSULE BY MOUTH AT BEDTIME active Not Available Not Available No t Available omeprazole 20 mg capsule,del ayed release TAKE 2 CAPSULES BY MOUTH DAILY 09/23 completed Not Available Not Available Not Available diclofenac sodium 75 mg tablet,amelia yed release TK 1 T PO BID 03/03 completed Not Available Not Available Not Available etodolac 400 mg tablet active Not Available Not Available Not Available hydroxyzine HCl 25 mg tablet 05/18 completed Not Available Not Available Not Available hydrocodone 5 mg-acetamin ophen 500 mg tablet active Not Available Not Available No t Available ammonium lactate 12 % topical cream APPLY EVERY MORNING AND EVERY EVENING TO DRY SKIN ON BODY THROUGHOU T active Not Available Not Available No t Available gabapentin 100 mg capsule TAKE 1 CAPSULE BY MOUTH THREE TIMES DAILY 03/11 completed Not Available Not Available Not Available warfarin 1 mg tablet active Not Available Not Available No t Available diazepam 10 mg tablet TAKE 1 TABLET BY MOUTH 1/2 HOUR PRIOR TO THE MRI DIRECTED active Not Available Not Available No t Available oxaprozin 600 mg tablet TK 1 T PO BID WITH FOOD 03/03 completed Not Available Not Available Not Available ibuprofen 600 mg tablet TK 1 T PO TID PC 03/03 completed Not Available Not Available Not Available cefuroxime axetil 500 mg tablet TAKE 1 TABLET BY MOUTH TWICE DAILY FOR 5 DAYS 03/11 completed Not Available Not Available Not Available estradiol 0.01% (0.1 mg/gram) vaginal cream INSERT 0.5 GRAM VAGINALLY EVERY DAY active Not Available Not Available No t Available scopolamine 1 mg over 3 days transdermal patch APPLY 1 PATCH BEHIND THE EAR FOR 72 HOURS active Not Available Not Available No t Available methylpredn isolone 4 mg tablets in a dose pack TAKE BY MOUTH ACCORDING TO PACKAGE INSTRUCTI ONS active Not Available Not Available No t Available ipratropium bromide 42 mcg (0.06 %) nasal spray USE 2 SPRAYS IEN BID FOR 7 DAYS 03/03 completed Not Available Not Available Not Available celecoxib 100 mg capsule TAKE 1 CAPSULE BY MOUTH DAILY active Not Available Not Available No t Available ondansetron 4 mg disintegrat ing tablet DISSOLVE 1 TABLET ON THE TONGUE EVERY 8 HOURS NEEDED FOR NAUSEA active Not Available Not Available No t Available cefdinir 300 mg capsule TK ONE C PO BID 03/03 completed Not Available Not Available Not Available fluoxetine 20 mg capsule TAKE 3 CAPSULES BY MOUTH DAILY 03/11 completed Not Available Not Available Not Available fluticasone propionate 50 mcg/actuati on nasal spray,suspe nsion active Not Available Not Available Not Available dicyclomine 10 mg capsule 12/12 completed Not Available Not Available Not Available sulindac 200 mg tablet 03/03 completed Not Available Not Available Not Available diazepam 5 mg tablet TAKE 1 TO 2 TABLETS BY MOUTH 1 HOUR BEFORE INJECTION 03/11 completed Not Available Not Available Not Available amoxicillin 875 mg-potassiu m clavulanate 125 mg tablet TAKE 1 TABLET BY MOUTH TWICE DAILY active Not Available Not Available No t Available nabumetone 500 mg tablet TK 2 TS PO BID 12/12 completed Not Available Not Available Not Available Ventolin HFA 90 mcg/actuati on aerosol inhaler INHALE 2 PUFFS BY MOUTH EVERY 4 TO 6 HOURS NEEDED FOR DIFFICULT BREATHING active Not Available Not Available No t Available oxycodone 5 mg tablet TAKE 1 TABLET BY MOUTH EVERY 6 HOURS NEEDED FOR PAIN active Not Available Not Available No t Available azithromyci n 500 mg tablet TAKE 1 TABLET BY MOUTH EVERY DAY active Not Available Not Available No t Available metoprolol tartrate 25 mg tablet TAKE 1/2 TABLET BY MOUTH TWICE DAILY.. active Not Available Not Available No t Available nitrofurant oin monohydrate /macrocryst als 100 mg capsule TAKE 1 CAPSULE (100 MG TOTAL) BY MOUTH EVERY 12 (TWELVE) HOURS FOR 5 DAYS. 03/03 completed Not Available Not Available Not Available duloxetine 20 mg capsule,del ayed release TAKE 2 CAPSULES BY MOUTH EVERY DAY active Not Available Not Available No t Available duloxetine 60 mg capsule,del ayed release TAKE 1 CAPSULE BY MOUTH DAILY active Not Available Not Available No t Available tizanidine 4 mg capsule TK 1 C PO TID PRN FOR MUSCLE SPASMS WILL CAUSE SEDATION 03/11 completed Not Available Not Available Not Available Lyrica 50 mg capsule active Not Available Not Available N ot Available Lyrica 150 mg capsule TK ONE C PO BID active Not Available Not Available No t Available chlorhexidi ne gluconate 0.12 % mouthwash active Not Available Not Available No t Available Daily Multi-Vitam in 03/03 completed Not Available Not Available Not Available peg 3350 240 gram-electr olytes 22.72 gram-6.72 g-5.84 g powdr for soln DRINK 240 ML MIXED WITH WATER PO Q 15 MINUTES OVER 2 SITTINGS DIRECTED. FINISH THE ENTIRE JUG 12/12 completed Not Available Not Available Not Available gabapentin (bulk) 100 % powder active Not Available Not Available Not Available diclofenac 1 % topical gel MIRIAM AA PRN 03/03 completed Not Available Not Available Not Available Myrbetriq 25 mg tablet,exte nded release 09/23 completed Not Available Not Available Not Available Vicodin 5 mg-300 mg tablet active Not Available Not Available Not Available Virtussin AC 10 mg-100 mg/5 mL oral liquid 03/03 completed Not Available Not Available Not Available potassium chloride ER 20 mEq tablet,exte nded release 03/11 completed Not Available Not Available Not Available Linzess 72 mcg capsule TAKE 1 CAPSULE BY MOUTH EVERY DAY active Not Available Not Available No t Available Trulance 3 mg tablet TAKE 1 TABLET BY MOUTH EVERY DAY active Not Available Not Available No t Available Fluarix Quad 6495-5154 (PF) 60 mcg (15 mcg x 4)/0.5 mL IM syringe TO BE ADMINISTE RED BY PHARMACIS T FOR IMMUNIZAT ION active Not Available Not Available No t Available Paxlovid 300 mg (150 mg x 2)-100 mg tablets in a dose pack TAKE 3 TABLETS BY MOUTH TWICE DAILY FOR 5 DAYS active Not Available Not Available No t Available Vitals Date Recorded Body height Provider Name an d Address Organization Details Last Updated DateTime 09/23/2021 162.56 cm Mel deleon in [facility], 09/23/2021 13:15:07 Date Recorded Body height Body mass index (BMI) Body weight Body temperature Heart rate Systolic And Diastolic Provider Name and Address Organization Details Last Updated DateTime 0 162.56 cm 37.3 kg/m2 15670.2 6 g 97.2 [degF] 66 /min 125/64 mm[Hg] Mel Burnett in [facility], 0 13:26:26 Date Recorded Body weight Body mass index (BMI) Body height Heart rate Systolic And Diastolic Provider Name and Address Organization Details Last Updated DateTime 03/03/2019 47052.08 g 36.9 kg/m2 162.56 cm 72 /min 119/65 mm[Hg] Adwoa Burnett in [facility], 03/03/2019 13:03:43 Date Recorded Body height Body mass index (BMI) Body weight Body temperature Heart rate Systolic And Diastolic Provider Name and Address Organization Details Last Updated DateTime 1 162.56 cm 38.1 kg/m2 987800. 51 g 97.2 [degF] 72 /min 135/81 mm[Hg] Adwoa Burnett in [facility], 1 12:57:10 Date Recorded Heart rate Body weight Body mass index (BMI) Body height Systolic And Diastolic Provider Name and Address Organization Details Last Updated DateTime 05/18/2017 63 /min 88275.47 g 34.3 kg/m2 162.56 cm 124/80 mm[Hg] Stefani Burnett in [facility], 05/18/2017 13:20:53 Social History Question Answer Notes LastModified by Organizat ion Details LastModified Time Tobacco Smoking Status Former Smoker quit 10 yrs ago Not Available [facility] 04/03/2020 03:19:42 How Many Years Have You Consumed Alcohol? 40 Information not available 03/11/2021 What Is Your Level Of Caffeine Consumption? Occasional [id number] Information not available 04/03/2020 In The 14 Days Before Symptom Onset, Have You Had Close Contact With A Laboratory-confir med COVID-19 While That Case Was Ill? No Information not available 03/11/2021 In The 14 Days Before Symptom Onset, Have You Had Close Contact With A Person Who Is Under Investigation For COVID-19 While That Person Was Ill? No Information not available 03/11/2021 Have You Been To An Area Known To Be High Risk For COVID-19? No Information not available 03/11/2021 What Type Of Diet Are You Following? REGULAR [id number] Information not available 04/03/2020 Which Illicit Or Recreational Drugs Have You Used? Thc//gummies Information not available 03/11/2021 Do You Reside In Or Have You Traveled To An Area Where Ebola Virus Transmission Is Active? No [id number] Information not available 04/03/2020 Education 12 Information no t available 08/10/2012 What Is The Highest Grade Or Level Of School You Have Completed Or The Highest Degree You Have Received? [id number] Information not available 03/11/2021 How Many Days In The Past Year Have You Had A Heavy Drinking Consumption (4+ Female, 5+ Male)? 0 Information no t available 05/16/2016 Are There Any Guns Present In Your Home? No Information not available 03/11/2021 High Number Of Sexual Partners No Information not available 05/16/2016 How Many Years Have You Used Illicit Or Recreational Drugs? 2 Information not available 03/11/2021 To Which Gender Do You Self-identify? Female Information not available 05/16/2016 Marital Status Informatio n not available 08/10/2012 What Was The Date Of Your Most Recent Tobacco Screening? 03/11/2021 Information not available 03/11/2021 What Is Your Relationship Status? Information not available 03/11/2021 Are You Sexually Active? No [id number] Information not available 04/03/2020 At What Age Did You Start Smoking Tobacco? 15 Information not available 03/11/2021 How Much Tobacco Do You Smoke? No [id number] Information not available 04/03/2020 General Stress Level High mgagne6 Information not available 12/13/2019 How Many Years Have You Smoked Tobacco? 28 [id number] Information not available 04/03/2020 Have You Recently (within The Last 12 Weeks, Or During A Current ) Traveled To Or Lived In A Zika-affected Area? No [employer] Information not available 05/16/2016 How Many Days In The Past Year Have You Consumed 4 Or More Drinks? 5 Information no t available 03/11/2021 Sex: Female Functional Status Question Answer Note LastModified by Organizat ion Details LastModified Time Do you use any illicit or recreational drugs? Yes Information not available 03/11/2021 Do you or have you ever used any other forms of tobacco or nicotine? No Information not available 03/11/2021 What is your level of alcohol consumption? Occasional [id number] Information not available 04/03/2020 Do you or have you ever used smokeless tobacco? Never used smokeless tobacco [id number] Information not available 04/03/2020 Are you currently employed? 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 Former user of electronic cigarettes Information not available 03/11/2021 What is your exercise level? None [id number] Information not available 04/03/2020 Mental Status Question Answer Note LastModified by Organization D etails LastModified Time Do you feel stressed (tense, restless, nervous, or anxious, or unable to sleep at night)? [id number] Information not available 03/11/2021 Family History Relationship Description Onset Age of this Age Resolved Age Notes LastModified by Organization Details LastModified Time Father Myocardial infarction previo usly record ed as Heart Attack ([place]) Not available 05/15/2015 09:49:18 Mother Chronic obstructive pulmonary disease 79 Not available 05/01 09:49:18 Medical History Condition Response Anesthesia complications N High Blood Pressure N Candidate for MyRisk panel N Autoimmune Condition N Thyroid Problems N Kidney or Bladder Problems N GI Problems N Lung Disease N Depression Y Defects or Inherited Disease N Anemia N History of Ovarian Cancer N History of Breast Cancer N CHARAN exposure N BRCA testing in past N Osteopenia N Psychiatric Illness N Anxiety Disorder N Diabetes N Arthritis Y Headaches or Migraines N Infertility N Asthma N History of Cancer N Endometriosis N Hepatitis N Heart Disease N Hypertension N Osteoporosis N Gynecological History Statement/Question Response If Post Menopausal, Age at Menopause 56 Flow Heavy Most Recent Bone Density 05/08/2015 Menses Monthly N Duration of Flow (days) 6 Age at Menarche 9 Current Control Method Tubal Ligat ion Most Recent Mammogram 10/20/2022 Age at First Child 33 Hormone Replacement Therapy N Obstetrics History GPAL:G 3 P 3 0 0 3 Type Value Full Term 3 Living 3 Total 3 Immunizations Vaccine Type Date Status Note Provider Nam e and Address Organization Details Recorded Time influenza, unspecified formulation 2 completed Lisa Pablo MD [address] [facility],[address], [place], [address], ALAN Burnett in [facility], 08/10/2012 11:56:05 Influenza, split virus, quadrivalent, PF 3 completed ALAN Romero in [facility], 03/23/2014 13:06:22 Influenza, split virus, trivalent, preservative 5 completed ALAN Romero in [facility], 04/20/2015 13:11:17 influenza, unspecified formulation 7 completed ALAN Romero in [facility], 05/18/2017 13:24:26 Influenza, split virus, quadrivalent, preservative 8 completed ALAN Arora in [facility], 03/03/2019 13:07:15 varicella 8 completed ALAN Arora in [facility], 03/03/2019 13:07:47 Influenza, split virus, quadrivalent, preservative 9 completed ALAN Turcios in [facility], 12/13/2019 13:25:29 Influenza, split virus, quadrivalent, preservative 0 completed Adwoa RenALAN mcdonald in [facility], 03/11/2021 13:06:15 COVID-19, mRNA, LNP-S, PF, 100 mcg/0.5mL dose or 50 mcg/0.25mL dose 1 completed ALAN Turcios in [facility], 09/23/2021 13:21:00 Influenza, split virus, trivalent, PF 4 completed Not Available [facility], [facility] 06/18/2019 02:22:34 Past Encounters Encounter ID Performer Location Encounter Start Date Encounter Closed Date Diagnosis/Indication Diagnosis SNOMED-CT Code Diagnosis ICD10 Code Diagnosis IMO Codes Diagnosis Note [id number] MD LISA Jones MD [address] [place] [address],[address] [place] [address] 08/10/2012 11:24:50 08/11/2012 09:38:56 [id number] MD LISA Jones MD [address] [place] [address],[address] [place] [address] 08/16/2012 11:30:07 08/16/2012 13:39:09 [id number] MD LISA Jones MD [address] [place] [address],[address] [place] [address] 03/23/2014 12:53:30 03/23/2014 14:24:10 Specialized medical examination 07623328 Screening for malignant neoplasm of rectum 806376442 Screening mammography 71190265 Pruritic disorder 634976818 Influenza vaccine needed [id number] [id number] MD LISA Jones MD [address] [facility],[address] [place] [address] 04/20/2015 13:00:20 04/20/2015 14:18:27 Specialized medical examination 07628154 Z01.419 Screening for malignant neoplasm of rectum 788192539 Z12.12 Screening mammography 24 153467 Z12.31 Postmenopa usal bleeding 32650696 N95.0 Menopausal syndrome 1237 62865 N95.1 [id number] MD LISA Jones MD [address] [place] [address], [address] [place] [address] 05/15/2015 09:04:50 05/15/2015 10:21:32 Postmenopausal bleeding 83076552 N95.0 [id number] MD LISA Jones MD [address] [place] [address],[facility] [address] [place] [address] 05/16/2016 13:15:43 05/16/2016 14:14:53 Specialized medical examination 19323774 Z01.419 Screening for malignant neoplasm of rectum 766666290 Z12.12 Screening mammography 24 104944 Z12.31 [id number] MD LISA Jones MD [address] [place] [address] 05/18/2017 13:08:55 05/18/2017 14:38:45 Specialized medical examination 76426266 Z01.419 Screening for malignant neoplasm of rectum 679972389 Z12.12 Screening mammography 24 776152 Z12.31 [id number] MD LISA Jones MD [address] [place] [address] [place] [address] 03/03/2019 12:54:31 03/03/2019 15:22:35 Screening for malignant neoplasm of cervix 330795810 Z12.4 Screening mammography 24 204505 Z12.31 Screening for osteoporosis 701626284 Z13.820 Pruritic disorder 246834 002 L29.9 [id number] MD LISA Jones MD [address] [place] [address], [address] [place] [address] 12/13/2019 13:21:07 12/13/2019 14:40:00 Acute lower urinary tract infection 190877299 R30.0 Atrophic vaginitis 63551 000 N95.2 Increased frequency of urination 589647155 R35.0 Urinary incontinence 165 835059 N39.41 [id number] MD LISA Jones MD [address] [facility],[address] [place] [address] 03/11/2021 12:51:40 03/11/2021 14:26:59 Screening for malignant neoplasm of cervix 564448644 Z12.4 Screening mammography 24 607324 Z12.31 Screening for osteoporosis 592825319 N95.8 Urinary incontinence 165 843800 N39.41 [id number] MD LISA Jones MD [address] [facility], [address] [place] [address] 09/23/2021 13:13:53 09/23/2021 14:41:26 Candidal vulvovaginitis 52348297 B37.3 Atrophic vaginitis 67653 000 N95.2 Gastric ulcer 337683319 K25.9 Retention of urine 95609 4002 R33.9 Health Concerns Section Related Observation LastModified by Organization Detai ls LastModified Time None Recorded Concern Status LastModified by Organization Details LastModified Time None Recorded Advance Directives Directive None Recorded Payers Insurance Date Sequence Insurance Name Policy Number Policy Glynn Covered Member ID Glynn Member ID Guarantor Name 09/23/2015 PAYMENT PLAN Norma Verdugo 12/31/2019 2 [place] Norma Verdugo 03/03/2019 1 [place] HOSP[facility] - DEDUCTIBLE (HMO) [id number] Shant Verdugo [id number] Norma Verdugo 05/16/2016 1 [facility] [id number] Shant Verdugo [id number] Norma Verdugo 04/16/2023 1 [facility] PRIOR TO 08/30/2022 - DUAL ELIGIBLE (MEDICARE REPLACEMENT/A DVANTAGE - HMO) Norma Verdugo [id number] Norma Verdugo 03/11/2021 2 [place]: NATIONAL [employer]MENT [employer] Norma Verdugo [id number] Norma Verdugo 03/11/2021 1 [place]: NATIONAL [employer]MENT SERVICES Norma Verdugo [id number] Norma Verdugo Notes Date Note Type Note Provider Name and Address Organization Details Recorded Time 05/18/2017 text/html She is here for annual exam, is just recovering from pneumonia after influenza. Note from last year: She is here for annual exam, is doing well, she lost 51 pounds with diet and exercise. She has had no vaginal bleeding since 05/2015. She has noted a lack of libido for years, her is 10 years younger blanco her and this is a problem. she does have dryness nad dyspareunia not resolved the dyspareunia. Lisa Pablo MD [address] [facility],[address], [place], [address], [facility], 05/18/2017 13:47:03 03/03/2019 text/html She is here for annual exam, had her lap band removed recently, after 5 years, due to gastric ulcer. She also had left thumb repeat surgery this year. Her 51 year old left his job and is unemployed, this is also stressful. He fixes machines. note from 05/2017: She is here for annual exam, is just recovering from pneumonia after influenza. Lisa Pablo MD [address] [facility],[address], [place], [address], [facility], 03/03/2019 13:52:03 12/13/2019 text/html She is here for a problem visit as she has developed urge incontinence and increased frequency of urination. This has bene slowly worsening for over a year. 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 She also notes she has not been sexually active in 2 years because of mild discomfort and complete disinterest. Lisa Pablo MD [address], [place], [address], [facility], 12/13/2019 14:16:47 03/11/2021 text/html She is here for annual exam, is doing well, but her niece by marriage was age 29 and had an allergic reaction at a wedding, and , she is grieving. I've never cried so much. Note from 2020: She is here for annual exam, had her lap band removed recently, after 5 years, due to gastric ulcer.She also had left thumb repeat surgery this year.Her 51 year old left his job and is unemployed, this is also stressful. He fixes machines. Lisa Pablo MD [address] [facility],[address], [place], [address], [place] [facility], 03/11/2021 14:18:22 09/23/2021 text/html This visit is a phone telehealth visit. The patient consented to the visit by phone. The patient was at home at the time of the call and the provider and patient were the only people on the line. I was at [address] [facility], [address], [place], at the time of the call. She has her two week post op appointment tomorrow, after her sling surgery. She is very worried because she is still unable to void sometimes and she would like a second opinion about all this. She was unable to void so she cath'd herself this am at 5:45 am and got out 17 oz., (500 cc) she then voided 25 cc at 8;30 am. At 10:40 am spontaneously voided 75 cc, She cath'd immediately and got out 75 cc. At noon she voided 75 cc, then at 1 pm voided 100 cc. She has been taking 3 different antibiotics as she has had a recurrent UTI, likely after self cath'ing. Lisa Pablo MD [address] [facility],[address], [place], [address], [place] [facility], 09/23/2021 14:01:06 OBGyn Episode No OBEpisode recorded.
== END 2025-03-21 06:15 | disposition home or self-care (01) ==
LOC: CF 06:14
PROVIDERS: Visit Provider Anesthesiology
DX: M21.6X2 Other acquired deformities of left foot (principal); M79.672 Pain in left foot
CPT/HCPCS: 64445; J2795

== ENCOUNTER 2025-03-21 10:37 | Outpatient (AMB) | payer OTHER, SELFPAY ==
[2025-03-21 10:38] VITALS: BP 125/73; PULSE 76; RESP 16; O2SAT 99; BMI 35.4
--- NOTE | 2025-03-21 10:38 | MHC.OFFVIS ---
Vital Signs 03/21/25 10:38 03/21/25 11:03 Height 5 ft 5 in Weight 213 lb BMI 35.4 BP 125/73 134/74 Blood Pressure Location Rt brachial Rt brachial Position Sitting Sitting Respiration 16 16 Pulse 76 75 Pulse Source Pulse Oximeter Pulse Oximeter Pulse Oximetry (%) 99 100 Oxygen Delivery Method Room Air Room Air Intake Visit Reasons: Left Popleteal Fossa Sciatic Nerve Block Allergies No Known Allergies Allergy (Verified 01/27/25 11:12) Physical Exam Vital Signs: Last Vital Signs Pulse 75 03/21/25 11:03 Resp 16 03/21/25 11:03 BP 134/74 03/21/25 11:03 Pulse Ox 100 03/21/25 11:03 Oxygen Delivery Method Room Air 03/21/25 11:03 BMI result Body Mass Index 35.4 Assessment & Plan Assessment & Plan (1) 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 If for consent was thoroughly explained to the patient. Risks and benefits were explained. The patient was positioned prone on the examination bed and the left popliteal fossa and surrounding skin areas were prepped with ChloraPrep and draped with sterile self adhesive utility towels. Sterilely draped ultrasound probe was brought over the operating field and picture of the sciatic nerve splitting into 2. Nerves peroneal and tibial was demonstrated on the ultrasound screen. The location of the nerves was chosen as the target of the injection. 22 gauge 100 mm stim needle was used to advance to were the targets observing the needle approach to peroneal and after that to tibial nerve. When the tip of the needle was in the proximity of the nerve injection of the saline was performed demonstrating tissue spread inappropriate fashion. After that injection of the 5 cc of the ropivacaine 0.5% at each site was performed. The patient tolerated the procedure well. The needle was withdrawn sterile Band-Aid was applied. Patient will be given a pain diary document the level of the pain after the procedure. 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
[2025-03-21 11:03] VITALS: BP 134/74; PULSE 75; RESP 16; O2SAT 100
== END 2025-03-21 11:04 | disposition home or self-care (01) ==
LOC: HO.PMCPRC 10:37
PROVIDERS: PCP Pediatrics; Visit Provider Anesthesiology
DX: M21.6X2 Other acquired deformities of left foot (principal); M79.672 Pain in left foot
CPT/HCPCS: 64445; 76942

== ENCOUNTER 2025-04-19 12:16 | Outpatient (AMB) | payer OTHER, SELFPAY ==
--- NOTE | 2025-04-19 12:40 | A.OFFVIS_ITS ---
Vital Signs 04/19/25 12:41 Height 5 ft 5 in Weight 204 lb BMI 33.9 BP 133/83 Blood Pressure Location Rt brachial Position Sitting Respiration 16 Pulse 93 Pulse Source Pulse Oximeter Pulse Oximetry (%) 98 Oxygen Delivery Method Room Air Intake Visit Reasons: S/P Left Popleteal Fossa Sciatic Nerve Block Web Content Producer Required: No Accompanied by: Self / Same As Patient Allergies No Known Allergies Allergy (Verified 04/19/25 12:45) HPI Comments Details: Norma is back in my office after diagnostic left sciatic popliteal nerve block. She reported that before the procedure her pain was 10/10. After the procedure her pain was 7/10. 2 hours after the procedure her pain became 5/10 and 4 hours after the procedure her pain was 3 to 4/10. For the rest of the day and next day after her pain was 3 to 4/10. She still reports some improvement after the injection. I offered this patient peripheral nerve stimulation sprint to treat her condition in the foot. Patient agreed to go for the procedure. It will be ultrasound-guided placement of the device. She was unable to go for the MRI of the cervical spine because of claustrophobia. Even with the sedative pills she was not able to tolerate positioning herself in the MRI machine. She is not diabetic and she does not have any kidney problems. I will schedule her for the CT scan of the cervical spine with and without contrast. Patient expressed understanding and agreed to go for the procedure. Prior: omplains on multiple pain generators. She reports that her pain started in her 30s in her right shoulder. She still complains on pain in the right shoulder. She had multiple hand surgeries and she complains on pain in bilateral hands. She also complains on weakness of the left hand and forearm. She reports that she is not able to function properly with the left hand. She never had an MRI of the cervical spine. She had multiple procedures of the lower back pain the last place where she had the procedures was [facility]. Recently she developed left foot arch collapse and she is offered surgery for this condition as well. She experiences severe pain in the bottom of her left sole. She had multiple images of multiple areas of the body but never MRI of the cervical spine. She had physical therapy for bilateral hands. She sometime ago had physical therapy for the lumbar spine. Review of Systems Const All systems reviewed & are unremarkable except as noted in HPI and below ENT Reports Normal hearing present Neuro Reports Normal hearing present, Denies Abnormal speech present, Denies confusion and Denies Sensory deficit (Neuro) Psych Denies confusion Physical Exam Vital Signs: Last Vital Signs Pulse 93 04/19/25 12:41 Resp 16 04/19/25 12:41 BP 133/83 04/19/25 12:41 Pulse Ox 98 04/19/25 12:41 Oxygen Delivery Method Room Air 04/19/25 12:41 BMI result Body Mass Index 33.9 Const General: no acute distress; No confusion Nutritional Appearance: obese morbidly obese Orientation/consciousness: patient oriented x3 and No confusion Eyes General: appearance normal, both eyes and all related structures Pupils: Equal, round and reactive pupils present EOM: EOMs intact bilaterally Neck Neck: Yes full ROM Chest Chest palpation & inspection: normal inspection of the chest Resp Effort & Inspection: normal respiratory effort, able to speak in complete sentences, normal respiratory pattern, no audible wheezes and no cough Cardio Jugular venous distension: no JVD GI Inspection: Yes normal to inspection Neuro General: patient oriented x3, gait normal and No confusion Cranial nerves: Yes CN's II-XII intact bilaterally, Yes Equal, round and reactive pupils present, Yes Normal hearing present and Yes Ability to bilaterally elevate shoulders present Speech: No Abnormal speech present Gait exam (Neuro): Normal gait present Motor exam (neuro): 5/5 motor strength present throughout Sensory Exam: No Sensory deficit (Neuro) Extrem Other: Objective weakness of the left hand. She is currently wearing a cast on the right hand after the recent surgery. Wears special shoes with insoles to help the left arch collapsed food. General: No pedal edema Psych Speech and movement: Normal speech and movement present Affect: normal affect Attitude: cooperative Thought process: Normal thought process present Thought content: Normal thought content present Insight: Good insight present (Psych) Judgement: Good judgement present (Psych) Assessment & Plan Assessment & Plan (1) Radiculopathy, cervical: Code(s): M54.12 - Radiculopathy, cervical region Category: Medical (2) Foot arch pain: Code(s): M79.673 - Pain in unspecified foot Category: Medical (3) Arch pain of left foot: Code(s): M79.672 - Pain in left foot Category: Medical (4) 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 I offered patient to c lolly sprint PNS in popliteal nerve positioned on the left. Patient agreed to go for the procedure. The pain in the cervical spine and weakness in the left upper extremity were indication for the MRI. She is very claustrophobic and unable to to have even open MRI under oral sedation. I will schedule this patient for CT scan with and without contrast. On objective exam weakness of the left upper extremity is suggestive of radiculopathy. 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
[2025-04-19 12:41] VITALS: BP 133/83; PULSE 93; RESP 16; O2SAT 98; BMI 33.9
--- OUTSIDE RECORDS SUMMARY | 2025-04-19 23:21 | XMS_ITS | Clinical Summary ---
Author Organization [facility] Address [address] [place] [address] Phone Care Team Providers Care Blood Bank Booking Clerk Name Role Phone Kurt Willis MD Primary Care Provider + Encounters Date Type Department Care Team Description 04/10/2025 Transcribe Orders [facility] [address] [place] [address] Chepe Byrd PA Osteoarthritis of both hands, unspecified osteoarthritis type (Primary Dx) from Last 3 Months Social History Tobacco Use Types Packs/Day Years Used Date Smoking Tobacco: Never Assessed Comments Unknown Sex and Gender Information Value Date Recorded Sex Assigned at Not on file Legal Sex Female 9:43 AM EDT Gender Identity Not on file Sexual Orientation Not on file Plan of Treatment Not on file Medical Devices Not on file Insurance [facility] MEDICARE REPLACEMENT [place] [id number] [facility] MED[facility]PLACEMENT [facility]PLACEMENT [facility] MEDICARE [facility]PLACEMENT [facility] C[facility] MEDICARE REPLACEMENT Care Teams Blood Bank Booking Clerk Relationship Specialty Start Date End Date Kurt Willis MD [address] [place] [address] PCP - General Internal Medicine 10/06/24 Additional Source Comments The information contained in this document represents components of the legal health record. It is not the complete legal health record.[facility]
--- OUTSIDE RECORDS SUMMARY | 2025-04-19 23:21 | XMS_ITS | Clinical Summary ---
Author Organization [facility] Address [address] [place] [address] Care Team Providers Care Disintegrator Feeder Name Role Phone Unavailable Primary Care Provider [...]
--- OUTSIDE RECORDS SUMMARY | 2025-04-19 23:21 | XMS_ITS | Data Portability ---
Author Organization [place] - [facility], Allergy Address [address] [address] Care Team Providers Care Professor Of [employer] Name Role Phone ANGELO MCDANIEL Referring Provider [...] underlying gastroesophageal reflux disease. Recommend follow-up with tail trimmer , Ann Matthews, to optimize reflux management. [...] w/o contrast 2024 025 VEENA [facility], [address] [facility], [facility] [address], [place], [address], 5 05:23:39 Medication Orders None recorded. Patient TargetsNo targets recorded. Patient InstructionsNo instructions recorded. Reason for Referral None Reported. Results Created Date Observation Date Name Description Value Unit Range Abnormal Flag Note LastModifiedBy Organization Detail LastModifiedTime 11/14/19 25 11/10/2024 CT, sinus es, w/o contr ast No observ ation [place]. [place] [id number] [facility] [address], [place], [address], 02/17/2025 08:39:12 11/14/19 25 11/10/2024 CT, sinus es, w/o contr ast No observ ation [place]. [place] [id number] [facility] [address], [place], [address], 02/17/2025 08:39:13 Result Notes None recorded. Problems Name Problem SNOMED Code Status Onset Date Resolution Date Notes Provider Name and Address Organization Details Recorded Time Nasal congestion 27684152 Active 2024 THERESA LERMA PA-C [address], [place], [address], [place] - [facility] 13:03:22 Chronic sinusitis 58897776 Active 2024 THERESA LERMA PA-C [address] [facility] [address], [place], [address], [place] - [facility] 13:03:28 Gastroesophage al reflux disease without esophagitis 338699836 Active 2024 THERESA LERMA PA-C [address], [place], [address], [place] [facility] 17:28:20 Posterior rhinorrhea 42396328 Active 2024 THERESA LERMA PA-C [address] [facility] [address], [place], [address], [place] [facility] 17:28:38 Problem Notes None recorded. Procedures Surgical History Date Name Laterality Status Provider Name and Address Organization Details Recorded Time 10/21/2024 FOL_Reflux _JMS completed THERESA LERMA PA-C [address], [place], [address], [place] [facility] 10/21/2024 17:24:25 Imaging Results None recorded. Procedure [...] Updated DateTime 10/21/2024 162.56 cm 39.5 kg/m2 222532.25 g RINA MORRISON [place] - [facility] 10/21/2024 10:19:17 Social History None recorded. Functional [...] ICD10 Code Diagnosis IMO Codes Diagnosis Note [id number] THERESA LERMA PA-C [facility] [address] [address] 10/21/2024 10:09:16 10/21/2024 10:51:31 Nasal congestion 91816236 R09.81 84271 Gastroesop hageal reflux disease without esophagitis 318478382 K21.9 380940 Posterior rhinorrhea 758 39373 J34.89 187899 Health Concerns Section Related Observation LastModified by Organization Detai ls LastModified Time None Recorded Concern Status LastModified by Organization Details LastModified Time None Recorded Advance Directives Directive None Recorded Payers Insurance Date Sequence Insurance Name Policy Number Policy Glynn Covered Member ID Glynn Member ID Guarantor Name 10/21/2024 1 [place] [employer] Norma Kaplan [place] [id number] Norma Lucina 10/27/2024 1 [facility] - DOS ON OR AFTER 2022 - MEDICARE [place]ANTAGE [place] (MEDICARE REPLACEMENT/AD VANTAGE - PPO) Norma Kaplan Lucina [id number] Norma Lucina Notes Date Note Type Note [...] She believes she is scheduled with an bituminous paving machine operator for environmental allergy testing. Recently dx with obstructive sleep apnea and started CPAP 2 months ago. Persistent tiredness, and plans to follow up with sleep specialist for machine adjustments. Followed by tail trimmer, Ann Matthews, at [facility] who prescribes pantoprazole 40 mg daily for gastroesophageal reflux disease. THERESA LERMA PA-C [address] [place] [address], [phone], [facility] - [facility] 10/21/2024 17:29:32 OBGyn Episode No OBEpisode recorded.
--- OUTSIDE RECORDS SUMMARY | 2025-04-19 23:22 | XMS_ITS | Data Portability ---
Author Organization [place] - [facility],, LISA PABLO MD Address [address] [address] Care Team Providers Care Technical Sales Representative Name Role Phone ENRIQUETA NORTH OTHER Assessment No assessment recorded. Plan of Treatment Reminders Order Date Submit Date Provider Last Modified By Organization Details Last Modified Time Details Appointments None recorded. Lab pap test, thinprep, cervical 2020 021 [email or web address] [facility], Cytopathology Service, [address] [place], [address], 1 07:32:10 urinalysi s, dipstick 2019 020 [email or web address] In-Office Order, Internal Use Only DO Not Attach Compendium DO Not Attach Compendium, Do Not Delete/merge, [id number] 0 07:23:42 culture, urine 2019 020 Virally, [address] [place], [address], 0 13:25:33 pap test, thinprep, cervical 2018 019 [email or web address] [facility], Cytopathology Service, [address] [place], [address], 9 08:21:32 pap test, thinprep, cervical 2016 017 [facility], Cytopathology Service, [address] [place], [address], 7 11:40:18 fecal occult blood, stool 2016 017 [email or web address] In-Office Order, Internal Use Only DO Not Attach Compendium DO Not Attach Compendium, Do Not Delete/merge, [id number] 7 07:54:55 Referral None recorded. Procedures None recorded. Surgeries None recorded. Imaging MAMMO, screening , digital, bilateral 2020 021 [facility] ([facility]), [address], [place], [address], 2 12:03:39 bone density 2020 021 [facility] ([facility]), [address] [place], [address], 2 18:13:56 MAMMO, screening , digital, bilateral 2018 019 [facility] ([facility]), [address] [place], [address], 0 07:32:59 bone density 2018 019 [facility] ([facility]), [address] [place], [address], 0 07:32:59 MAMMO, screening , digital, bilateral 2016 017 [facility] [address] [place], [address], 8 14:27:32 Medication Orders fluconazo le 150 mg tablet 2021 022 CENTER [facility][id number], [address] [place], [place], [id number], 2 13:54:00 estradiol 0.01% (0.1 mg/gram) vaginal cream 2019 020 [email or web address] 1 [facility] #94252, [address] [place], [place], [id number], 0 14:07:23 triamcino lone acetonide 0.1 % topical ointment 2018 019 INTERFACE [facility] #05338, [address] [place], [place], [id number], 9 13:47:58 Patient TargetsNo targets recorded. Patient Instructions Encounter Date Encounter Id Patient Instructions Last Modified By Organization Details Last Modified Time 05/18/2017 [id number] self breast exam education [email or web address] Not available [...] questions answered. Not available 05/18/2017 13:45:53 03/03/2019 [id number] atrophic vaginit is: care instructions [email or web address] Not available 03/03/2019 13:47:54 She is here [...] detail. patrice Not available 03/03/2019 13:49:20 12/13/2019 [id number] atrophic vaginit is: care instructions [email or web address] Not [...] minutes patrice Not available 12/13/2019 14:12:24 03/11/2021 [id number] atrophic vaginit is: care instructions patrice Not [...] the breast. Not available 03/11/2021 14:17:39 09/23/2021 [id number] atrophic vaginit is: care instructions Not available [...] people on the line. I was at [address] [place] [address], [address], [place], [place], at the time of the call. [...] DO Not Attach Compendium, Do Not Delete/merge, [id number] 05/18/2017 13:27:36 05/18/20 17 05/18/2017 pap, LB [email or web address] ThinP rep Pap and Cell Block : [...] ause, lps 05/16 neg, z12.4 Not Available [facility], Cytopathology Service [address] [place], [address], 05/22/2017 11:40:18 03/03/20 19 03/03/2019 pap test, thinp rep, cervi rell [email or web address] ThinP rep Pap, Image d: NEGAT ERMELINDA [...] LPS 05/18 NEG [Z12. 4] Not Available [facility]opathology Service [address] [place], [address], 03/08/2019 14:16:47 12/13/19 20 12/13/2019 cultu re, urine comments [facility], a membe r of [facility] [address] [place] [address] Medic al Dire fred bourgeois MD SOUR E: URINE ,JINNY N CATCH ; Not Available [facility] [address] [place] [address], [address], 12/15/2019 13:19:52 12/13/1912/15/2019 cultu re, urine urine culture [facility], a membe r of [facility] [address] [place] [address] Medic al Dire fred bourgeois MD COLLE CTION TIME: 2019 2:00: 00 PM -04:0 0 URINE CULTU RE <10,0 00 CFU/m L F URINE CULTU RE JAY L SKIN/ UROGE NITAL FRANCISCO PRESE NT. F Not Available [facility] [address] [place] [address], [address], 12/15/2019 13:19:52 12/13/1912/13/2019 urina lysis , dipst [...] DO Not Attach Compendium, Do Not Delete/merge, [id number] 12/13/2019 13:46:46 12/13/19 20 12/13/2019 urina lysis , dipst ick NIT negati ve Not Available In-Office Order Internal Use Only DO Not Attach Compendium DO Not Attach Compendium, Do Not Delete/merge, [id number] 12/13/2019 13:46:46 12/13/19 20 12/13/2019 urina lysis , dipst ick CARLEEN Negati ve Not Available In-Office Order Internal Use Only DO Not Attach Compendium DO Not Attach Compendium, Do Not Delete/merge, [id number] 12/13/2019 13:46:46 03/11/20 21 03/11/2021 PAP1C ASE [email or web address] ThinP rep Pap, Image d: NEGAT ERMELINDA [...] . LPS NEG, Z12.4 . Not Available [facility] Cytopathology Service [address] [place], [address], 03/25/2021 07:55:41 02/10/20 18 02/06/2018 MAMMO , scree judit, digit al, bilat eral No observ ation record ed. Not Available 01/30 14:37:00 02/11/20 19 02/10/2019 MAMMO , scree judit, digit al, bilat eral No observ ation record ed. [email or web address] [facility] ([facility]) [address] [place], [address], 02/11/2019 08:59:33 06/28/19 22 06/28/2021 bone densi [...] Organization Details Recorded Time Postmenopaus al bleeding 78396837 Active Lisa Pablo MD [address], [place], [address], [place] - [facility], 09:53:52 Menopausal syndrome 655397713 Active Lisa Pablo MD [address], [place], [address], [place] - [facility], 09:53:52 Biliuria 89543872 Active Lisa Pablo MD [address], [place], [address], [place] - [facility], 5 09:53:52 Obesity 904918135 Active had lap band surgery Lisa Pablo MD [address], [place], [address], [place] [facility], 5 09:53:52 Pain in female pelvis 407225425 Active Lisa Pablo MD [address], [place], [address], [place] - [facility], 09:53:52 Knee pain Active Lisa Pablo MD [address], [place], [address], [place] - [facility], 5 09:53:52 Pruritic disorder 082263739 Active Lisa Pablo MD [address], [place], [address], [place] [facility], 5 09:53:52 Acute lower urinary tract infection 872599871 Active Lisa Pablo MD [address], [place], [address], [place] [facility], 5 09:53:52 Pain of hip region 99808414 Active Lisa Pablo MD [address], [place], [address], [place] [facility], 5 09:53:52 Malaise and fatigue 658848738 Active Lisa Pablo MD [address], [place], [address], [place] [facility], 5 09:53:52 Vitamin D deficiency 33024929 Active Lisa Pablo MD [address], [place], [address], [place] [facility], 5 09:53:52 Osteoarthrit is 834672510 Active 2015 Stefani morejon [place] - [facility], 6 13:28:06 Atrophic vaginitis 00136517 Active 2019 Lisa Pablo MD [address], [place], [address], [place] [facility], 0 14:06:54 Increased frequency of urination 446797477 Active 2019 Lisa Pablo MD [address], [place], [address], [place] - [facility], 0 14:07:07 Urinary incontinence 728129642 Active 2019 Lisa Pablo MD [address], [place], [address], [place] - [facility], 14:07:15 Problem Notes None recorded. Procedures Surgical History Date Name Laterality Status Provider Name and Address Organization Details Recorded Time 10/21/19 23 Most Recent Mammogram completed Adwoa Martin [place] - [facility], 03/09/2023 08:17:06 08/17/19 22 procedure on urinary bladder completed Mel Ford [place] - [facility], 09/23/2021 13:21:35 04/11/20 20 Knee arthroscopy/surg shruthi completed Adwoa Martin [place] - [facility], 03/11/2021 13:08:41 12/31/19 19 Thumb tendon transfer completed Adwoa Martin [place] - [facility], 03/03/2019 13:10:14 05/15/20 15 Endometrial Biopsy completed Lisa Pablo MD [address], [place], [address], [place] - [facility], 05/15/2015 09:54:52 05/08/20 15 Most Recent Bone Density completed Stefani Herring [place] - [facility], 05/16/2016 13:30:08 06/01/19 14 laparoscopic adjustable gastric banding completed Lisa Pablo MD [address], [place], [address], [place] - [facility], 03/03/2019 13:20:13 12/31/19 13 Other completed Stefani Herring [place] - [facility], 03/23/2014 13:10:39 06/01/19 13 Other completed Stefani Herring [place] - [facility], 03/23/2014 13:11:16 06/01/19 13 Other completed Stefani Herring [place] - [facility], 03/23/2014 13:12:36 06/01/19 12 Other completed Adwoa Martin [place] - [facility], 08/10/2012 11:48:20 06/01/19 11 Other completed Stefani Herring [place] - [facility], 03/23/2014 13:10:39 06/01/18 97 Tubal Ligation completed Adwoa Martin [place] Burnett in [facility], 08/10/2012 11:48:20 Imaging Results None recorded. Procedure Notes None recorded. Medical Equipment None Reported. Allergies Allergen ID Allergen Name Allergen Category Reaction Reaction Severity Criticality Documentation Date Start Date Code Code System Note Provider Name and Address Organization Details Recorded Time Cymbalta medicatio n other Not available Not available 05/18/2017 49429 4 RxNorm Skin sukhdev d off hands Adwoa Martin ALAN morejon in [facility], 1 12:57:55 7081 Bactrim medicatio n hives Not available Not available 08/10/2012 49256 9 RxNorm Mel MccormickALAN vazquez in [facility], 2 13:15:21 Medications Name Sig Start Date [...] Not Available Not Available vitamin d cap 95818xse active Not Available Not Available Not Available [...] active Not Available Not Available Not Available proair [...] Not Available No t Available Fluarix Quad 8124-5774 (PF) 60 mcg (15 mcg x 4)/0.5 [...] DateTime 09/23/2021 162.56 cm Mel deleon in [facility], 09/23/2021 13:15:07 Date Recorded Body height Body mass index (BMI) Body weight Body temperature Heart rate Systolic And Diastolic Provider Name and Address Organization Details Last Updated DateTime 0 162.56 cm 37.3 kg/m2 09202.2 6 g 97.2 [degF] 66 /min 125/64 mm[Hg] Mel Burnett in [facility], 0 13:26:26 Date Recorded Body weight Body mass index (BMI) Body height Heart rate Systolic And Diastolic Provider Name and Address Organization Details Last Updated DateTime 03/03/2019 04429.08 g 36.9 kg/m2 162.56 cm 72 /min 119/65 mm[Hg] Adwoa Burnett in [facility], 03/03/2019 13:03:43 Date Recorded Body height Body mass index (BMI) Body weight Body temperature Heart rate Systolic And Diastolic Provider Name and Address Organization Details Last Updated DateTime 1 162.56 cm 38.1 kg/m2 448308. 51 g 97.2 [degF] 72 /min 135/81 mm[Hg] Adwoa Burnett in [facility], 1 12:57:10 Date Recorded Heart rate Body weight Body mass index (BMI) Body height Systolic And Diastolic Provider Name and Address Organization Details Last Updated DateTime 05/18/2017 63 /min 97962.47 g 34.3 kg/m2 162.56 cm 124/80 mm[Hg] Stefani Burnett in [facility], 05/18/2017 13:20:53 Social History Question Answer Notes LastModified by Organizat ion Details LastModified Time Tobacco Smoking Status Former Smoker quit 10 yrs ago Not Available [facility] 04/03/2020 03:19:42 How Many Years Have You Consumed Alcohol? 40 Information not available 03/11/2021 What Is Your Level Of Caffeine Consumption? Occasional [id number] Information not available 04/03/2020 In The 14 [...] Type Of Diet Are You Following? REGULAR [id number] Information not available 04/03/2020 Which Illicit Or Recreational Drugs Have You Used? Thc//gummies Information not available 03/11/2021 Do You Reside In Or Have You Traveled To An Area Where Ebola Virus Transmission Is Active? No [id number] Information not available 04/03/2020 Education 12 Information no t available 08/10/2012 What Is The Highest Grade Or Level Of School You Have Completed Or The Highest Degree You Have Received? [id number] Information not available 03/11/2021 How Many Days [...] available 03/11/2021 Are You Sexually Active? No [id number] Information not available 04/03/2020 At What Age Did You Start Smoking Tobacco? 15 Information not available 03/11/2021 How Much Tobacco Do You Smoke? No [id number] Information not available 04/03/2020 General Stress Level High mgagne6 Information not available 12/13/2019 How Many Years Have You Smoked Tobacco? 28 [id number] Information not available 04/03/2020 Have You Recently (within The Last 12 Weeks, Or During A Current ) Traveled To Or Lived In A Zika-affected Area? No [employer] Information not available 05/16/2016 How Many Days [...] is your level of alcohol consumption? Occasional [id number] Information not available 04/03/2020 Do you or have you ever used smokeless tobacco? Never used smokeless tobacco [id number] Information not available 04/03/2020 Are you currently employed? 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 Former user of electronic cigarettes Information not available 03/11/2021 What is your exercise level? None [id number] Information not available 04/03/2020 Mental Status Question Answer Note LastModified by Organization D etails LastModified Time Do you feel stressed (tense, restless, nervous, or anxious, or unable to sleep at night)? [id number] Information not available 03/11/2021 Family History Relationship Description Onset Age of this Age Resolved Age Notes LastModified by Organization Details LastModified Time Father Myocardial infarction previo usly record ed as Heart Attack ([place]) Not available 05/15/2015 09:49:18 Mother Chronic obstructive pulmonary disease 79 Not available 05/01 09:49:18 Medical History Condition Response High Blood Pressure N Autoimmune Condition N Depression Y History of Ovarian Cancer N Anxiety Disorder N Arthritis Y Infertility N Kidney or Bladder Problems N Osteopenia N Asthma N Hepatitis N Anesthesia complications N Candidate for MyRisk panel N Lung Disease N Defects or Inherited Disease N BRCA testing in past N History of Cancer N Endometriosis N Thyroid Problems N GI Problems N Anemia N History of Breast Cancer N CHARAN exposure N Psychiatric Illness N Diabetes N Headaches or Migraines N Heart Disease N Hypertension N Osteoporosis [...] formulation 2 completed Lisa Pablo MD [address] [facility],[address], [place], [address], ALAN [facility], 08/10/2012 [...] quadrivalent, preservative 9 completed ALAN Turcios in [facility], 12/13/2019 13:25:29 Influenza, split virus, quadrivalent, preservative 0 completed Adwoa RenALAN mcdonald in [facility], 03/11/2021 13:06:15 COVID-19, mRNA, LNP-S, PF, 100 mcg/0.5mL dose or 50 mcg/0.25mL dose 1 completed ALAN Turcios in [facility], 09/23/2021 13:21:00 Influenza, split virus, trivalent, PF 4 completed Not Available [facility] 06/18/2019 02:22:34 Past Encounters Encounter ID Performer Location Encounter Start Date Encounter Closed Date Diagnosis/Indication Diagnosis SNOMED-CT Code Diagnosis ICD10 Code Diagnosis IMO Codes Diagnosis Note [id number] MD LISA Jones MD [address] [place] [address],[address] [place] [address] 08/10/2012 11:24:50 08/11/2012 09:38:56 [id number] MD LISA Jones MD [address] [place] [address],[address] [place] [address] 08/16/2012 11:30:07 08/16/2012 13:39:09 [id number] MD LISA Jones MD [address] [place] [address],[address] [place] [address] 03/23/2014 12:53:30 03/23/2014 14:24:10 Specialized medical examination 70412097 Screening for malignant neoplasm of rectum 699175861 Screening mammography 69923257 Pruritic disorder 111139086 Influenza vaccine needed 7064801127 106 [id number] MD LISA Jones MD [address] [facility],[address] [place] [address] 04/20/2015 13:00:20 04/20/2015 14:18:27 Specialized medical examination 50733704 Z01.419 Screening for malignant neoplasm of rectum 935844006 Z12.12 Screening mammography 24 924506 Z12.31 Postmenopa usal bleeding 80223061 N95.0 Menopausal syndrome 1237 37190 N95.1 [id number] MD LISA Jones MD [address] [place] [address], [address] [place] [address] 05/15/2015 09:04:50 05/15/2015 10:21:32 Postmenopausal bleeding 18418346 N95.0 [id number] MD LISA Jones MD [address] [place] [address] [address] [place] [address] 05/16/2016 13:15:43 05/16/2016 14:14:53 Specialized medical examination 25358289 Z01.419 Screening for malignant neoplasm of rectum 216658154 Z12.12 Screening mammography 24 588233 Z12.31 [id number] MD LISA Jones MD [address] [place] [address] 05/18/2017 13:08:55 05/18/2017 14:38:45 Specialized medical examination 80415651 Z01.419 Screening for malignant neoplasm of rectum 691081915 Z12.12 Screening mammography 24 589701 Z12.31 [id number] MD LISA Jones MD [address] [place] [address] [place] [address] 03/03/2019 12:54:31 03/03/2019 15:22:35 Screening for malignant neoplasm of cervix 534801221 Z12.4 Screening mammography 24 100619 Z12.31 Screening for osteoporosis 762152289 Z13.820 Pruritic disorder 834689 002 L29.9 [id number] MD LISA Jones MD [address] [place] [address], [address] [place] [address] 12/13/2019 13:21:07 12/13/2019 14:40:00 Acute lower urinary tract infection 008401844 R30.0 Atrophic vaginitis 74802 000 N95.2 Increased frequency of urination 078382646 R35.0 Urinary incontinence 165 664161 N39.41 [id number] MD LISA Jones MD [address] [facility],[address] [place] [address] 03/11/2021 12:51:40 03/11/2021 14:26:59 Screening for malignant neoplasm of cervix 413013237 Z12.4 Screening mammography 24 398061 Z12.31 Screening for osteoporosis 783873741 N95.8 Urinary incontinence 165 090508 N39.41 [id number] MD LISA Jones MD [address] [facility], [address] [place] [address] 09/23/2021 13:13:53 09/23/2021 14:41:26 Candidal vulvovaginitis 35371768 B37.3 Atrophic vaginitis 71412 000 N95.2 Gastric ulcer 017294663 K25.9 Retention of urine 93584 4002 R33.9 Health Concerns Section Related Observation LastModified by Organization Detai ls LastModified Time None Recorded Concern Status LastModified by Organization Details LastModified Time None Recorded Advance Directives Directive None Recorded Payers Insurance Date Sequence Insurance Name Policy Number Policy Glynn Covered Member ID Glynn Member ID Guarantor Name 09/23/2015 PAYMENT PLAN Norma Verdugo 12/31/2019 2 [place] [facility] Norma Verdugo 03/03/2019 1 [place] [facility] - DEDUCTIBLE (HMO) [id number] Shant Verdugo [id number] Norma Verdugo 05/16/2016 1 [facility] [id number] Shant Verdugo [id number] Norma Verdugo 04/16/2023 1 [facility] PRIOR TO 08/30/2022 - DUAL ELIGIBLE (MEDICARE REPLACEMENT/A DVANTAGE - HMO) Norma Verdugo [id number] Norma Verdugo 03/11/2021 2 [place] [employer] Norma Verdugo [id number] Norma Verdugo 03/11/2021 1 [place] [employer] Norma Verdugo [id number] Norma Verdugo Notes Date Note Type Note [...] resolved the dyspareunia. Lisa Pablo MD [address] [facility],[address], [place], [address], [email or web address] - [facility], 05/18/2017 13:47:03 03/03/2019 text/html She is here [...] pneumonia after influenza. Lisa Pablo MD [address] [facility],[address], [place], [address], [email or web address] - [facility], 03/03/2019 13:52:03 12/13/2019 text/html She is here [...] and complete disinterest. 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 Lisa Pablo MD [address] [facility],[address], [place], [address], [place] - [facility], 03/11/2021 14:18:22 09/23/2021 text/html This visit is a phone telehealth visit. The patient consented to the visit by phone. The patient was at home at the time of the call and the provider and patient were the only people on the line. I was at [address] [facility], [address], [place], at the time [...] after self cath'ing. Lisa Pablo MD [address] [facility],[address], [place], [address], [place] - [facility], 09/23/2021 14:01:06 OBGyn Episode No OBEpisode recorded.
== END 2025-04-19 13:02 | disposition home or self-care (01) ==
LOC: HO.PMC 12:17
PROVIDERS: PCP Pediatrics; Visit Provider Anesthesiology
DX: M54.12 Radiculopathy, cervical region (principal); M79.672 Pain in left foot; M21.6X2 Other acquired deformities of left foot; M54.50 Low back pain, unspecified; G89.4 Chronic pain syndrome; M19.90 Unspecified osteoarthritis, unspecified site
CPT/HCPCS: 99213

== ENCOUNTER 2025-04-19 12:16 | Outpatient (REF) | payer OTHER, SELFPAY ==
[2025-04-19 15:08] LABS: Anion Gap 13 (12-20); Blood Urea Nitrogen 14 mg/dL (9-16); Calcium 9.8 mg/dL (8.4-10.2); Carbon Dioxide 26 mmol/L (22-29); Chloride 107 mmol/L (96-108); Estimated Glomerular Filt Rate > 60; Potassium 3.4 mmol/L (3.3-5.1); Sodium 143 mmol/L (135-145)
== END 2025-04-19 12:17 | disposition home or self-care (01) ==
LOC: HO.LAB 12:16
PROVIDERS: PCP Pediatrics; Visit Provider Anesthesiology
DX: M79.672 Pain in left foot (principal); M54.12 Radiculopathy, cervical region; G89.4 Chronic pain syndrome; M21.6X2 Other acquired deformities of left foot; M54.50 Low back pain, unspecified; M19.90 Unspecified osteoarthritis, unspecified site
CPT/HCPCS: 36415; 80048

== ENCOUNTER 2025-05-09 09:00 | Outpatient (REF) | payer OTHER, SELFPAY ==
--- NOTE | ~2025-05-09 | CT_ITS ---
CLINICAL HISTORY: M54.12 - Radiculopathy, cervical region CT cervical spine with and without contrast Comparison: None provided Findings: No evidence of cervical spine fracture. Vertebral body heights are maintained. The usual cervical lordosis is reversed with a mild kyphosis centered at C6-C7. Grade 1 degenerative anterolisthesis of C4 on C5. No other spondylolisthesis or facet dislocation. Multilevel discogenic degenerative disease which is most conspicuous at C6-C7 and to a lesser extent C5-C6. The spinal canal measures 9-10 mm at C6-C7. Multilevel facet osteoarthritis. Degenerative neural foraminal narrowing is mild to moderate on the left and mild on the right at C3-C4, mild to moderate on the left at C4-C5, mild to moderate on the right at C5-C6, and mild on the left at C6-C7. The prevertebral soft tissues are not abnormally thickened. No abnormal enhancement. The lung apices are clear. Calcific atherosclerosis. Medial/retropharyngeal course of the common carotid arteries. IMPRESSION: No acute cervical spine findings. Multilevel degenerative changes as above. This document has been electronically signed by: Kyle Romero DO on 05/11/2025 10:25:17
[2025-05-09] MEDS: iohexoL 350 MG/ML 100 ML INFUS..BTL 60 ML IV (10:29)
== END 2025-05-09 09:01 | disposition home or self-care (01) ==
LOC: HO.CT 09:00
PROVIDERS: PCP Pediatrics; Visit Provider Anesthesiology
DX: M54.12 Radiculopathy, cervical region (principal); G89.4 Chronic pain syndrome
CPT/HCPCS: 72127; Q9967

== ENCOUNTER → 2025-05-09 09:01 | Outpatient (BNV) | payer OTHER, SELFPAY | PROVIDERS: PCP Pediatrics; Visit Provider Radiology Diagnostic Radiology | DX: M54.12 Radiculopathy, cervical region (principal); M50.30 Other cervical disc degeneration, unspecified cervical region | CPT/HCPCS: 72127 ==